=== PATIENT | female | born 1995 | race Caucasian/White ===

== ENCOUNTER 2022-08-13 08:29 | Emergency (ER) | payer OTHER, SELFPAY ==
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
[2022-08-13 08:29] VITALS: BP 149/84; PULSE 92; RESP 17; TEMP 36.4; O2SAT 99
[2022-08-13] MEDS: KETOROLAC (*BKC) 60 MG/2 ML VIAL IM (08:59)
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
[2022-08-13 10:29] VITALS: BP 133/85; PULSE 89; RESP 15; O2SAT 99
== END 2022-08-13 10:30 | disposition home or self-care (01) ==
PROVIDERS: Emergency Provider Emergency Medicine; PCP Internal Medicine
DX: S16.1XXA Strain of muscle, fascia and tendon at neck level, initial encounter (principal); S39.012A Strain of muscle, fascia and tendon of lower back, initial encounter; V49.40XA Driver injured in collision with unspecified motor vehicles in traffic accident, initial encounter
CPT/HCPCS: 72100; 81025; 96372; 99283; J1885

== ENCOUNTER 2024-08-08 04:32 | Emergency (ER) | payer SELFPAY ==
--- NOTE | ~2024-08-08 | CT_ITS ---
EXAMINATION: CT abdomen pelvis w con DATE: 08/08/2024 07:29 INDICATION: Left lower quadrant abdominal pain. TECHNIQUE: Computed tomography (CT) of the abdomen and pelvis was performed with 100 mL Omnipaque 350 intravenous contrast. Automated exposure control and iterative reconstruction technique were employe d. The dose-length product was 392.24 mGy-cm. COMPARISON: None. FINDINGS: The visualized portions of the lung bases demonstrate mild atelectasis in the right. No ple ural effusion. The heart size is normal. No pericardial effusion. The liver, gallbladder, spleen, lindsey creas, adrenal glands, and right kidney are normal. There is a delayed left-sided contrast nephrogram . There is asymmetric edema around left kidney. There is a 3 mm stone in left kidney. There is mild l eft hydronephrosis and hydroureter. There is a 3 mm stone at left ureterovesicular junction. There is a ring-shaped device in the vagina. There are no dilated loops of bowel. The appendix is normal. The re are no pathologically enlarged lymph nodes. There is no free intraperitoneal fluid. There is mild lumbar spondylosis. IMPRESSION: 1. 3 mm stone at left ureterovesicular junction with mild left hydronephrosis and hydroureter. 2. 3 mm nonobstructing left kidney stone. Reviewed, dictated and finalized at location A. IMPRESSION: 1. 3 mm stone at left ureterovesicular junction with mild left hydronephrosis a nd hydroureter. 2. 3 mm nonobstructing left kidney stone.
[2024-08-08 04:33] VITALS: BP 162/84; PULSE 88; RESP 16; TEMP 36.6; O2SAT 100
--- OUTSIDE RECORDS SUMMARY | 2024-08-08 04:34 | XMS_ITS | Encounter Summary ---
Author Organization [facility] Address [facility] [place] [address] Care Team Providers Care Ring Cutter Lathe Operator Name Role Phone Jonna Naylor Primary Care Provider [phone] Jonna Naylor Unavailable [phone] Encounter Details Date Type Department Care Team (Late st Contact Info) Description 04/24/2023 [facility] Message [facility] Family Medicine [address] [address] [place], [facility] Provider Appointment Social History Tobacco Use Types Packs/Day Years Used Date Smoking Tobacco: Never Passive Smoke Exposure: Past Smokeless Tobacco: Never Alcohol Use Standard Drinks/Week Comments No 0 (1 standard drink = 0.6 oz pur e alcohol) AUDIT-C Answer Date Recorded Frequency of Alcohol Consumption Never 12/02/2018 Average Number of Drinks Not on file 019 Frequency of Binge Drinking Not on file 11/15 PHQ-2 Answer Date Recorded Patient Health Questionnaire-2 Score 1 10/08/2022 Comments No Sex and Gender Information Value Date Recorded Sex Assigned at Not on file Legal Sex Female 8:16 PM CDT Gender Identity Female 07/15/2021 2:16 PM CORE CHECKER Sexual Orientation Not on file documented as of this encounter Plan of Treatment Not on file documented as of this encounter Visit Diagnoses Not on filedocumented in this encounter Additional Health Concerns Infection Onset Date Last Indicated Resolved Time COVID-19 Rule Out 07/27/2023 07/27/2023 07/27/2023 1:29 PM CDT Assessment Noted Time PHQ-9 Depression Total Score: 11 023 8:48 AM CDT documented as of this encounter Care Teams Ring Cutter Lathe Operator Relationship Specialty Start Date End Date Jonna Naylor FNP [address] [place] [address] PCP - General Nurse Practitioner Family 03/30/19 Jonna Naylor FNP [address] [place] [address] Referring Physician Nurse Practitioner Family 04/08/19 documented as of this encounter
--- OUTSIDE RECORDS SUMMARY | 2024-08-08 04:34 | XMS_ITS | Encounter Summary ---
Author Organization [facility] Address [address] [place] [address] Care Team Providers Care Therapist Physical Name Role Phone Jonna Naylor Primary Care Provider [phone] Jonna Naylor Unavailable [phone] Encounter Details Date Type Department Care Team (Late st Contact Info) Description 04/02/2019 Fileboard Message Enc [facility] Family & Internal Medicine [facility] [address] [place] [address] Jonna Naylor FNP [address] [place] [address] Medication Questions Social History Tobacco Use Types Packs/Day Years Used Date Smoking Tobacco: Never Smokeless Tobacco: Never Alcohol Use Standard Drinks/Week Comments No 0 (1 standard drink = 0.6 oz pur e alcohol) AUDIT-C Answer Date Recorded Frequency of Alcohol Consumption Never 12/02/2018 Average Number of Drinks Not on file 019 Frequency of Binge Drinking Not on file 11/15 Comments No Sex and Gender Information Value Date Recorded Sex Assigned at Not on file Legal Sex Female 8:16 PM CDT Gender Identity Female 07/15/2021 2:16 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 Sexual Orientation Not on file documented as of this encounter Plan of Treatment Not on file documented as of this encounter Visit Diagnoses Not on filedocumented in this encounter Additional Health Concerns Infection Onset Date Last Indicated Resolved Time COVID-19 Rule Out 07/27/2023 07/27/2023 07/27/2023 1:29 PM CDT documented as of this encounter Care Teams Therapist Physical Relationship Specialty Start Date End Date Jonna Naylor FNP [address] [place] [address] PCP - General Nurse Practitioner Family 03/30/19 Jonna Naylor FNP [address] [place] [address] Referring Physician Nurse Practitioner Family 04/08/19 documented as of this encounter
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
--- OUTSIDE RECORDS SUMMARY | 2024-08-08 04:34 | XMS_ITS | Clinical Summary ---
Author Organization [facility] Address [address] [place] [address] Care Team Providers Care Senior Tableau Developer Name Role Phone Paul Baltazar MD Primary Care Provider [phone] Source Comments [facility],non-owned Affiliates and Associated Physician Practices is amultiple site organization consisting of ambulatory clinics and hospital sitesin [place], [place], [place] and [place]. This disclosure is being madepursuant to the Care Everywhere program and may not contain all information available regarding this patient. Last updated 18.[facility] Allergies Active Allergy Reactions Criticality Noted Date Comments Other Other 11/11/2012 She passed out taking her 2nd dose of guardisil Medications * Be aware that medications may not be up to date on this document. Alwaysverify current medications with the patient. Medication Sig Dispensed Refills Start Date End Date Status amphetamine-dextroamp hetamine (Adderall) 10 MG tablet TAKE 1 TABLET BY MOUTH IN THE EARLY AFTERNOON NEEDED 07/09/2023 Active amphetamine-dextroamp hetamine (Adderall) 20 MG tablet TAKE 1 TABLET BY MOUTH EARLY AFTERNOON NEEDED 07/27/2023 Active amphetamine-dextroamp hetamine (Adderall) 10 MG tablet TAKE 1 TABLET BY MOUTH IN THE EARLY AFTERNOON NEEDED Active amphetamine-dextroamp hetamine (Adderall) 30 MG tablet 07/09/2023 Active ARIPiprazole (Abilify) 2 MG tablet 07/27/2023 Act jesus escitalopram (Lexapro) 20 MG tablet 06/30/2023 Active Active Problems Problem Noted Date Diagnosed Date Attention deficit hyperactiv ity disorder (ADHD), combined type 06/27/2021 08/10/2023 Polycystic ovary syndrome 04/29/20212023 Anxiety and depression 07/19/2020 Vitamin D deficiency 07/19/2020 08/10/2023 Gastroesophageal reflux disease 10/22/2016 08/10/2023 Irregular periods 09/08/2014 08/10/2023 Overview (08/10/2023): Irregular menstrual cycle;Practice ID: [id number] Atypical squamous cells of u ndetermined significance (ASCUS) on Papanicolaou smear of cervix 04/26/2014 08/10/2023 Overview (08/10/2023): Pap Abnormal Endocerv Endometrial Octavio;Practice ID: [id number] Pap Abnormal ASCUS;Practice ID: [id number] Panic disorder without agoraphobia 05/13/2013 08/10/2023 ACL (anterior cruciate ligament) rupture 013 Hip pain, bilateral 05/27/2011 Family History Medical History Relation Name Comments Depression Brother Hypertension Brother Thyroid Disease Brother Depression Father Hypertension Father CVA Maternal Aunt COPD - Chronic Obstructive Pulmonary Disease Maternal Grandfather Heart Failure Maternal Grandfather Cancer - Lung Maternal Grandmother Anesthesia Reaction Mother Diabetes; unknown type Mother Hyperlipidemia Mother Hypertension Mother Thyroid Disease Mother Hyperlipidemia Paternal Grandfather Hypertension Paternal Grandfather Depression Paternal Grandmother Relation Name Status Comments Brother Father Alive Maternal Aunt Alive Maternal Grandfather Maternal Grandmother Mother Alive Paternal Grandfather Paternal Grandmother Alive Social History Tobacco Use Types Packs/Day Years Used Date Smoking Tobacco: Never Passive Smoke Exposure: Past Smokeless Tobacco: Never Tobacco Cessation:Counseling Given: Not Answered Alcohol Use Standard Drinks/Week Comments No 0 (1 standard drink = 0.6 oz pur e alcohol) Sex and Gender Information Value Date Recorded Sex Assigned at Female 12/07/2020 10:39 AM CDT Gender Identity Female 12/07/2020 10:39 AM CDT Sexual Orientation Not on file Last Filed Vital Signs Vital Sign Reading Time Taken Comments Blood Pressure 128/74 08/26/2023 8:20 AM CDT Pulse 96 12/07/2020 7:22 PM CDT Temperature 37.1 C (98.7 F) 12/07/2020 7:22 PM CDT Respiratory Rate 14 12/07/2020 7:22 PM CDT Oxygen Saturation 96% 12/07/2020 7:22 PM CDT Inhaled Oxygen Concentration - - Weight 77.1 kg (170 lb) 08/26/2023 8:20 AM CDT Height 162.6 cm (5' 4 ) 08/26/2023 8:20 AM CDT Body Mass Index 29.18 08/26/2023 8:20 AM CDT Plan of Treatment Health Maintenance Due Date Last Done Comments PAP SMEAR 1994 HIV SCREENING 2009 HEPATITIS C SCREENING 02/07/2012 DTAP/TDAP/TD VACCINES (1 - Tdap) 2013 HEPATITIS B VACCINE (1 of 3 - 19+ 3-dose series) 2013 COVID-19 VACCINE (2 - 2023-2 5 season) 2024 07/23/2020 INFLUENZA VACCINE (#1) 2024 DEPRESSION SCREENING 05/18/2024 ZOSTER VACCINE (1 of 2) 02/12/2044 HIB VACCINE Aged Out No longer eligi ble based on patient's age to complete this topic HPV VACCINE Aged Out No longer eligi ble based on patient's age to complete this topic MENINGOCOCCAL (Group B) VACC INE SHARED DECISION-MAKING Aged Out No longer eligibl e based on patient's age to complete this topic MENINGOCOCCAL GROUPS A/C/Y/W VACCINE Aged Out No longer eligible b ased on patient's age to complete this topic PNEUMOCOCCAL VACCINE Aged Out No long er eligible based on patient's age to complete this topic Care Teams Senior Tableau Developer Relationship Specialty Start Date End Date Paul Baltazar MD PCP - General 03/11/13
--- OUTSIDE RECORDS SUMMARY | 2024-08-08 04:35 | XMS_ITS | Encounter Summary ---
Author Organization [facility] Address [facility] [place] [address] Care Team Providers Care Sample Stitcher Name Role Phone Jonna Naylor Primary Care Provider [phone] Jonna Naylor Unavailable [phone] Encounter Details Date Type Department Care Team (Late st Contact Info) Description 08/20/2022 [facility] Patient Accounts [address] [place] [address] [facility] Provider Monthly Credit Card Payment Social History Tobacco Use Types Packs/Day Years Used Date Smoking Tobacco: Never Smokeless Tobacco: Never Alcohol Use Standard Drinks/Week Comments No 0 (1 standard drink = 0.6 oz pur e alcohol) AUDIT-C Answer Date Recorded Frequency of Alcohol Consumption Never 12/02/2018 Average Number of Drinks Not on file 019 Frequency of Binge Drinking Not on file 11/15 PHQ-2 Answer Date Recorded PHQ-2 Score - If the patient scores above 3, please move on to questions 3-9 5 06/24/2021 Comments No Sex and Gender Information Value Date Recorded Sex Assigned at Not on file Legal Sex Female 8:16 PM CDT Gender Identity Female 07/15/2021 2:16 PM DIRECTOR OF PRODUCT DESIGN Sexual Orientation Not on file documented as of this encounter Plan of Treatment Not on file documented as of this encounter Visit Diagnoses Not on filedocumented in this encounter Additional Health Concerns Infection Onset Date Last Indicated Resolved Time COVID-19 Rule Out 07/27/2023 07/27/2023 07/27/2023 1:29 PM CDT Assessment Noted Time PHQ-9 Depression Total Score: 20 022 4:32 PM DIRECTOR OF PRODUCT DESIGN documented as of this encounter Care Teams Sample Stitcher Relationship Specialty Start Date End Date Jonna Naylor FNP [address] [place] [address] PCP - General Nurse Practitioner Family 03/30/19 Jonna Naylor FNP [address] [place] [address] Referring Physician Nurse Practitioner Family 04/08/19 documented as of this encounter
--- OUTSIDE RECORDS SUMMARY | 2024-08-08 04:35 | XMS_ITS | Data Portability ---
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 if PCOS, could try metformin for weight loss. Not available 04/24/2021 12:32:59 07/16/2021 07/16/2021 healthy female exam patient declines std testing pap done, discussed guidelines contraception- nuva ring refilled. may have to DC if BP remains uncontrolled. will FU with PCP re BP/stimulant. pt desires Dr Yeung weight loss consult- will schedule FU 1 year or prn [email or web address] Not available 07/19/2021 11:26:04 07/29/2023 07/29/2023 Annual gynecological exam performed. Patient will come back in a year unless there are new symptoms. [email or web address] Not available 07/29/2023 09:05:46 Plan of Treatment Reminders Order Date Submit Date Provider Last Modified By Organization Details Last Modified Time Details Appointments None recorded . Lab pregnanc y test, urine 2022 023 wiliam [facility], [address], [address], [place], [address], 10:55:33 dhea-sul fate, serum 2020 021 [facility] (Lab), [address] , [place], [address], 1 17:23:24 HbA1c (hemoglo bin A1c), blood 2020 021 [facility] (Lab), [address], [place], [address], 1 17:23:25 prolacti n, serum 2020 021 [facility] (Lab), [address], [place], [address], 1 17:23:24 testoste madhu free/bernie tosteron e total, ratio, serum 2020 [facility] (Lab), [address], [place], [address], 1 17:23:25 TSH, serum or plasma 2020 [facility] (Lab), [address] , [place], [address], 1 17:23:24 pregnanc y test, urine 2020 [facility], [address], [address], [place], [address], 1 16:46:39 Referral urogynec ologist referral 2023 024 sonja Brown MD - [facility], [address], [place] [address], [place], [address], 4 15:12:28 Procedures None recorded . Surgeries None recorded . Imaging None recorded . Medication Orders Diflucan 200 mg tablet 2023 024 [facility]74019, [address], [place], [place], [id number], 4 12:46:59 nystatin -triamci nolone 100,000 unit/gra m-0.1 % topical ointment 2023 024 [place] [facility]35005, [address], [place], [place], [id number], 4 12:47:00 NuvaRing 0.12 mg-0.015 mg/24 hr vaginal 2023 024 [place] [facility]07506, [address], [place], [place], [id number], 4 12:31:36 metronid azole 500 mg tablet 2022 023 [facility], [address], [place], [place], [id number], 4 09:06:53 fluconaz ole 150 mg tablet 2022 023 [place] [address] [facility], [address], [place], [place], [id number], 4 09:06:42 nystatin -triamci nolone 100,000 unit/gra m-0.1 % topical ointment 2022 023 [facility]55, [address], [place], [place], [id number], 4 09:06:58 etonoges trel 0.12 mg-ethin yl estradio l 0.015 mg/24 hr vaginal ring 2022 023 [place] [facility] #39978, [address], [place], [place], [id number], 3 10:56:56 Diflucan 150 mg tablet 2021 022 [email or web address] [facility] #92098, [address], [place], [place], [id number], 4 09:06:42 triamcin olone acetonid e 0.1 % topical ointment 2021 [facility] #61150, [address], [place], [place], [id number], 3 09:39:10 [address] granules in packet 2021 [facility] #84713, [address], [place], [place], [id number], 3 09:39:07 NuvaRing 0.12 mg-0.015 mg/24 hr vaginal 2021 022 [facility] #86133, [address], [place], [place], [id number], 3 09:38:44 Provera 10 mg tablet 2020 021 [facility] #63776, [address], [place], [place], [id number], 2 14:36:53 NuvaRing 0.12 mg-0.015 mg/24 hr vaginal 2020 021 [facility] #58533, [address], [id number], 3 09:38:44 Patient TargetsNo targets recorded. Patient InstructionsNo instructions recorded. Reason for Referral Urogynecologist Referral for Vulvar vestibulitis Referring Physician: Viola Borges, MEDIA MARKETING COORDINATOR, Encounter Date: 07/29/2023 Results Created Date Observation Date Name Description Value Unit Range Abnormal Flag Note LastModifiedBy Organization Detail LastModifiedTime 04/23/20 21 04/23/2021 TSH, REFLE X FREE T4 TSH 5.16 uIU/m L 0.30-5 .33 Not Available [facility] (Lab) [address], [place], [address], 04/27/2021 17:23:24 04/23/20 21 04/23/2021 PROLA CTIN prolactin, total 22.40 NG/mL 4.79-2 3.30 This assay was perfo rmed using [employer] ratio n reage nts and test kits. Value s obtai shannon with other assay metho ds or kits canno t be used inter villarreal eably . Not Available [facility] (Lab) [address], [place], [address], 04/27/2021 17:23:24 04/23/20 21 04/23/2021 DHEA SULFA TE DHEA-sulfate 169 ug/dL Femal e Range s Age(y ) Range (ug/d L) 10-15 34-28 0 15-20 65-36 8 20-25 148-4 07 25-35 99-34 0 35-45 61-33 7 45-55 35-25 6 55-65 19-20 5 65-75 9-246 > 75 12-15 4 Not Available [facility] (Lab) [address] , [place], [address], 04/27/2021 17:23:24 04/23/20 21 04/23/2021 HEMOG LOBIN A1C hemoglobin A1C 5.3 % 0-5.6 The Ameri can Diabe bernie Assoc iatio n recom mends that a prima ry goal of thera py shoul d be a HBA1C of < 7% and that physi cians shoul d reeva luate the treat ment regim en in patie nts with HBA1C value s consi stent ly > 8%. <5.7% Muriel l 5.7 - 6.4% Incre ased risk for diabe bernie >=6.5 % Diagn ostic of diabe bernie <7.0% Goal of thera py >8.0% Louie arrington Not Available [facility] (Lab) [address] [place], [address], 04/27/2021 17:23:25 04/23/20 21 04/23/2021 TESTO STERO NE, FREE( DIALY SIS) AND TOTAL (LC/M S/MS) testosterone , total 55 NG/dL 2-45 high For addit ional infor cinthia motta e refer to http: //[facility]chell mendoza.que stdia gnost ics.c om/fa q/Tot alTkrish Salgado [facility] (This link is being provi ded for infor matadis nal/ educa whitney l purpo ses only. ) This test was devel oped and its khushi tical perfo rmanc e inder cteri stics have been deter mined by [facility] [employer] [facility]. It has not been clear ed or appro will by the FDA. This assay has been valid ated pursu ant to the CLIA regul ation s and is used for clini vidhi purpo ses. Not Available [facility] (Lab) [address], [place], [address], 04/27/2021 17:23:25 04/23/20 21 04/23/2021 TESTO STERO NE, FREE( DIALY SIS) AND TOTAL (LC/M S/MS) testosterone , free 10.6 pg/mL 0.1-6. 4 high This test was devel oped and its khushi tical perfo rmanc e inder cteri stics have been deter mined by [facility]. It has not been clear ed or appro will by the FDA. This assay has been valid ated pursu ant to the CLIA regul ation s and is used for clini vidhi purpo ses. Perfo rming Organ izati on Infor matio n: Site ID: [id number] Name: [facility] Yessenia campos Addre ss: [id number] [place] [address] Direc tor: Danny garcia M.D. Not Available [facility] (Lab) [address], [place], [address], 04/27/2021 17:23:25 04/23/20 21 04/23/2021 pregn marcin test, urine HCG negati ve Not Available [facility] [address], [place], [address], 04/23/2021 16:46:29 07/17/19 22 07/16/2021 IMAGE GUIDE D PAP, REFLE X HPV IF ASCUS ONLY image guided Pap, reflex HPV ASCUS only SEE RESULT S BELOW CASE REPOR T: Cytol ogy Gynec ologi vidhi Repor t Case: [id number] Autho mathieu hewitt Provi aracelis: Minnie Méndez MD Colle cted: 07/16 1639 Order ing Locat ion: [place] [facility] Recei will: 07/17 0333 First Scree n: Cyndi Ceballos , CT Speci men: Scree julianne Pap - Image d, Cervi x STATE MENT OF ADEQU ACY: Satis facto ry for evalu ation Trans forma tion zone compo nent prese nt FINAL DIAGN OSIS: Negat jesus for Intra epith elial Lesio n or Maciel zarate (NIL) . Elect davis griffith josué d by Cyndi Ceballos CT on 022 at 12:08 PM ----- ----- ----- ----- ----- ----- ----- ----- ----- ----- ----- ----- ----- ----- ----- ----- ----- ---- COMME NT: Note: This speci men was revie wed by a Cytot echno logis t and/o r Patho logis t (as indic ated in this repor t) after evalu ation using the Thinp rep Imagi ng Syste m. CLINI VIDHI INFOR MATIO N: Menst rual Statu s: LMP (if appli cable ): Clini vidhi Histo ry/Pr eviou s Pap: Type of Neopl bear (if appli cable ): Signi fican t Clini vidhi Findi ngs: Other Histo ry: Hormo yehuda (if appli cable ): PAP EDUCA WHITNEY L NOTE: The Pap Test is a scree julianne test with an inher ent false negat jesus rate. Liqui d-bas ed sampl ing may decre ase, but will not elimi trinidad, false negat jesus resul ts. A negat jesus resul t does not precl ude the prese nce and/o r devel opmen t of disea se, since the prese nce of abnor mal cells in the sampl e depen ds on the locat ion of the lesio n and sampl ing techn ique. Cece nued regul ar scree julianne is the best metho d of cance r preve ntion . If repor tyler cytol ogic findi ng do not corre late with physi vidhi and/o r histo rical findi ngs, furth er inves tigat ion is recom tuyet d, as clini chyna warra nted. Not Available [facility] (Lab) [address] , [place], [address], 07/22/2021 13:11:37 01/09/20 23 01/08/2023 pregn marcin test, urine HCG negati ve Not Available [facility] [address], [place], [address], 01/08/2023 10:55:26 07/29/19 24 07/29/2023 MOBIL UNCUS MULIE RIS/C URTIS KATIE, RT-PC R, ONE SWAB mobiluncus mulieris and mobiluncus curtisii by RT-PCR Negati ve Swab- 1 Vag Cerv Not Available [facility] (Lab) [address] , [place], [address], 08/05/2023 15:04:00 07/29/19 24 07/29/2023 BACTE RIAL VAGIN OSIS PANEL RT-PC R, ONESW AB gardnerella vaginalis PCR Negati ve Swab- 1 Vag Cerv Not Available [facility] (Lab) [address] [place], [address], 08/05/2023 15:04:01 07/29/19 24 07/29/2023 BACTE RIAL VAGIN OSIS PANEL RT-PC R, ONESW AB atopobium vaginae PCR Negati ve Swab- 1 Vag Cerv Not Available [facility] (Lab) [address] [place], [address], 08/05/2023 15:04:01 07/29/19 24 07/29/2023 BACTE RIAL VAGIN OSIS PANEL RT-PC R, ONESW AB bacterial vaginosis associated bacteria 2 (bvab2) Negati ve Swab- 1 Vag Cerv Not Available [facility] (Lab) [address] [place], [address], 08/05/2023 15:04:01 07/29/19 24 07/29/2023 BACTE RIAL VAGIN OSIS PANEL RT-PC R, ONESW AB megasphaera species (type 1 and type 2) PCR Negati ve (Type1 ,Type2 ) Swab- 1 Vag Cerv Type1 :Nega tive Type2 :Nega tive. Not Available [facility] (Lab) [address] [place], [address], 08/05/2023 15:04:01 07/29/19 24 07/29/2023 BACTE RIAL VAGIN OSIS PANEL RT-PC R, ONESW AB lactobacillu s (bvpanel) PCR See Commen t Swab- 1 Vag Cerv L.cri spatu s: Posit jesus L.lakeisha senii : Negat jesus L.gas seri : Negat jesus L.ine rs : Posit jesus. Not Available [facility] (Lab) [address] [place], [address], 08/05/2023 15:04:01 07/29/19 24 07/29/2023 UROGE NITAL MYCOP LASMA /UREA PLASM A PANEL RT-PC R, ONESW AB mycoplasma genitalium by RT-PCR Negati ve Swab- 1 Vag Cerv Not Available [facility] (Lab) [address], [place], [address], 08/05/2023 15:04:02 07/29/19 24 07/29/2023 UROGE NITAL MYCOP LASMA /UREA PLASM A PANEL RT-PC R, ONESW AB mycoplasma hominis by RT-PCR Negati ve Swab- 1 Vag Cerv Not Available [facility] (Lab) [address] [place], [address], 08/05/2023 15:04:02 07/29/19 24 07/29/2023 UROGE NITAL MYCOP LASMA /UREA PLASM A PANEL RT-PC R, ONESW AB ureaplasma urealyticum by RT-PCR Negati ve Swab- 1 Vag Cerv Not Available [facility] (Lab) [address] [place], [address], 08/05/2023 15:04:02 07/29/19 24 07/29/2023 ILDEFONSO DA VAGIN ITIS PANEL RT-PC R, ONESW AB usama albicans PCR Positi ve abnormal Swab- 1 Vag Cerv Not Available [facility] (Lab) [address] [place], [address], 08/05/2023 15:04:02 07/29/19 24 07/29/2023 ILDEFONSO DA VAGIN ITIS PANEL RT-PC R, ONESW AB usama tropicalis PCR Negati ve Swab- 1 Vag Cerv Not Available [facility] (Lab) [address] [place], [address], 08/05/2023 15:04:02 07/29/19 24 07/29/2023 ILDEFONSO DA VAGIN ITIS PANEL RT-PC R, ONESW AB usama parapsilosis PCR Negati ve Swab- 1 Vag Cerv Not Available [facility] (Lab) [address] [place], [address], 08/05/2023 15:04:02 07/29/19 24 07/29/2023 ILDEFONSO DA VAGIN ITIS PANEL RT-PC R, ONESW AB usama glabrata PCR Negati ve Swab- 1 Vag Cerv Not Available [facility] (Lab) [address] [facility], [place], [address], 08/05/2023 15:04:02 07/29/19 24 07/29/2023 ILDEFONSO DA VAGIN ITIS PANEL RT-PC R, ONESW AB usama krusei by RT-PCR Negati ve Swab- 1 Vag Cerv Not Available [facility] (Lab) [address], [place], [address], 08/05/2023 15:04:02 07/29/19 24 07/29/2023 ILDEFONSO DA RADAMES I BY RT-PC R usama krusei by RT-PCR CANCEL LED Dupli mainor Not Available [facility] ([facility]) [address] [place], [address], 08/05/2023 15:04:03 Result Notes None recorded. Problems Name Problem SNOMED Code Status Onset Date Resolution Date Notes Provider Name and Address Organization Details Recorded Time Breast lump 80784742 Completed 201509/03/2021 Unspecifi ed lump in breast;Pr actice ID: 0001 Carlee Gomez [facility] 2 22:18:43 Disorder of intraute rine contrace ptive device Completed 201509/12/2020 [facility] compl of intrauter ine contracep tive device, init encntr;Pr actice ID: 0001 Carlee Gomez [facility] 16:21:48 Finding of regulari ty of menstrua l cycle Completed 201509/12/2020 Irregular menstruat ion, unspecifi ed;Practi ce ID: 0001 [facility] 16:21:17 Pelvic and perineal pain 214190370 Completed 201509/12/2020 Pelvic and perineal pain;Prac irwin ID: [address] [facility] 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 16:21:55 Acute vaginiti s [id number] Completed 201609/12/2020 Acute vaginitis ;Practice ID: [address] [facility] 16:20:57 Vaginola bial hernia Completed 201609/12/2020 Other specified noninflam matory disorders of vagina;Pr actice ID: [address] [facility] 16:22:15 Syphilis test finding [id number] Completed 201609/12/2020 Encntr screen for infection s w sexl mode of transmiss ;Practice ID: [address] [facility] 16:22:08 Infectio n screenin g Completed 201609/12/2020 Encounter for screening for oth infec/par astc diseases; Practice ID: [address] [facility] 16:21:22 Emotiona l state finding Completed 201709/12/2020 Other specified anxiety disorders ;Practice ID: [address] [facility] 16:21:[address] Concept Completed 201709/12/2020 Encntr for general adult medical exam w/o abnormal findings; Practice ID: [address] [facility] 16:21:43 Removal of intraute rine device Completed 201809/12/2020 Encounter for removal of intrauter ine contracep tive device;Pr actice ID: 0001 Carlee Gomez [facility] 16:21:[address] Concept Completed 201909/12/2020 Encounter for other contracep tive managemen t;Practic e ID: 0001 Carlee Gomez [facility] 16:22:00 Speciali zed medical examinat ion Completed 201209/12/2020 Gynecolog ical Examinati on;Record ed Elsewhere : No Locati on: [facility] So urce: EHR Chron ic: N Practic e ID: 0001 Bill able Time: 01:30:00 PM Carlee Gomez [facility] 16:22:03 Amenorrh ea [id number] Completed 201209/12/2020 Absence of menstruat ion;Recor ded Elsewhere : No Locati on: [facility] So urce: EHR Chron ic: N Practic e ID: 0001 Bill able Time: 03:15:00 PM Carlee Gomez [facility] 16:21:02 Contrace ption care manageme nt Completed 201009/12/2020 Other specified contracep tive managemen t;Practic e ID: 0001 Carlee Gomez [facility] 16:21:51 Screenin g for malignan t neoplasm of cervix Completed 201009/12/2020 Pap Smear;Pra ctice ID: 0001 Carlee Gomez [facility] 16:21:41 Pregnanc y test negative [id number] Completed 201209/12/2020 Negative Test;Prac irwin ID: 0001 Carlee Gomez [facility] 16:21:35 Vaginiti s and vulvovag initis Completed 201309/12/2020 Vaginitis and vulvovagi nitis, unspecifi ed;Practi ce ID: 0001 Carlee Gomez [facility] 16:22:13 Speciali zed medical examinat ion Completed 201309/12/2020 Other specified chlamydia l diseases; Practice ID: 0001 Carlee Gomez [facility] 16:22:05 Venereal disease screenin g Completed 201309/12/2020 Screening examinati on for venereal disease;Vicky hamptontice ID: 0001 Carlee Gomez [facility] 16:22:18 Insertio n of intraute rine contrace ptive device Completed 201309/12/2020 INSERTION OF IUD;Pract ice ID: 0001 Carlee Gomez [facility] 16:21:26 Atypical squamous cells of undeterm ined signific ance on cervical Papanico laou smear [id number] Completed 201309/03/2021 Pap Abnormal ASCUS;Pra ctice ID: 0001 Carlee Gomez [facility] 2 22:18:43 Urinary tract infectio us disease 37905075 Completed 201409/12/2020 Urinary tract infection , site not specified ;Practice ID: 0001 Carlee Gomez [facility] 16:22:10 Abdomina l pain 13400351 Completed 201409/12/2020 Abdominal pain, unspecifi ed site;Prac irwin ID: 0001 Carlee Gomez [facility] 16:20:55 Irregula r periods [id number] Completed 201409/12/2020 Irregular menstrual cycle;Pra ctice ID: 0001 Carlee Gomez [facility] 1 16:21:29 Atypical glandula r cells on cervical Papanico laou smear [id number] Completed 201409/12/2020 Pap Abnormal Endocerv Endometri al Octavio;Prac irwin ID: 0001 Carlee Gomez [facility] 1 16:21:04 Adult health examinat ion Completed 201309/12/2020 ROUTINE MEDICAL EXAM;Rico rded Elsewhere : No Locati on: [facility] So urce: EHR Chron ic: N Practic e ID: 0001 Bill able Time: 03:30:00 PM Carlee Gomez [facility] 16:21:00 Family planning surveill ance Completed 201309/12/2020 Contracep tive method surveilla nce;Recor ded Elsewhere : No Locati on: [facility] So urce: EHR Chron ic: N Practic e ID: 0001 Bill able Time: 03:30:00 PM Carlee Gomez [facility] 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 2 22:18:43 Problem Notes None recorded. Procedures Surgical History Date Name Laterality Status Provider Name and Address Organization Details Recorded Time 07/17/19 22 Date of Last Pap Smear completed Carlee Edwards [facility] 07/29/2023 09:07:17 04/27/20 14 Colposcopy completed Carlee [facility] 09/12/2020 16:58:30 tonsilectomy/adeno ids completed Carlee [facility] 09/04/2021 10:39:18 reconstruction of anterior cruciate ligament of knee joint completed Bridgette John [facility] 12/22/2019 11:45:18 Removal of ovarian cyst(s) completed Bridgette John [facility] 12/22/2019 11:45:24 Tonsillectomy completed Bridgette John [facility] 12/22/2019 11:45:29 Imaging Results None recorded. Procedure Notes None recorded. Medical Equipment None Reported. Allergies Allergen ID Allergen Name Allergen Category Reaction Reaction Severity Criticality Documentation Date Start Date Code Code System Note Provider Name and Address Organization Details Recorded Time 1585 L1 protein, human papilloma virus type 16 vaccine Not available Not available Not available Not available 12/22/2019 44752 4 RxNorm [facility] 11:43:42 1586 ascorbic acid / cuprous oxide / lutein / vitamin E / zinc oxide medicatio n Not available Not available Not available 12/22/2019 61813 [address] [facility] 0 11:43:53 Medications Name Sig Start Date Stop Date Status Note LastModified by Organization Details LastModified Time Prometriu m 200 mg capsule take 1 capsule (200MG) by oral route every day for 30 days 12/23 completed Prescrib ed Donher e: No [facility] odify By: jason tz Encou nter DateTime : 11/25/19 13 03:15:00 PM Not Available Not Available Not Available cyclobenz aprine 10 mg tablet TAKE 1 TABLET BY MOUTH THREE TIMES DAILY NEEDED FOR MUSCLE SPASM 07/28 completed Not Available Not Available Not Available amoxicill in 500 mg capsule TAKE ONE CAPSULE BY MOUTH THREE TIMES DAILY 01/08 completed Not Available Not Available Not Available medroxypr ogesteron e 10 mg tablet TAKE 1 TABLET BY MOUTH EVERY DAY FOR 7 DAYS active Not Available Not Available No t Available cefuroxim e axetil 250 mg tablet 04/23 completed Not Available Not Available Not Available naproxen 375 mg tablet TAKE 1 TABLET BY MOUTH TWICE DAILY 01/08 completed Not Available Not Available Not Available azithromy deana 250 mg tablet TAKE 2 TABLETS BY MOUTH FOR 1 DAY THEN TAKE 1 TABLET BY MOUTH DAILY FOR 4 DAYS 04/23 completed Not Available Not Available Not Available Necon 35 (28) 1 mg-35 mcg tablet take 1 tablet by oral route every day 09/23 completed Prescrib ed Elsewher e: No Locat ion: [facility] odify By: lbillhar tz Encou nter DateTime : 02/10/20 01:30:00 PM Not Available Not Available Not Available Lidocaine Viscous 2 % mucosal solution 07/28 completed Not Available Not Available Not Available fluconazo le 150 mg tablet TAKE 1 TABLET BY MOUTH NOW. REPEAT IN 7 DAYS 07/28 completed Not Available Not Available Not Available hydrocodo ne 5 mg-acetam inophen 325 mg tablet TAKE 1 TABLET BY MOUTH EVERY 4 TO 6 HOURS NEEDED 01/08 completed Not Available Not Available Not Available fluconazo le 200 mg tablet Take 1 tablet PO every other day x 3 doses. active Not Available Not Available No t Available dextroamp hetamine- amphetami ne 10 mg tablet TAKE 1 TABLET BY MOUTH IN THE EARLY AFTERNOO N NEEDED active Not Available Not Available No t Available metronida zole 500 mg tablet TAKE 1 TABLET BY MOUTH EVERY 12 HOURS FOR 7 DAYS 07/28 completed Not Available Not Available Not Available acetamino phen 300 mg-codein e 30 mg tablet TAKE 1 TO 2 TABLETS BY MOUTH EVERY 6 HOURS NEEDED FOR PAIN 04/23 completed Not Available Not Available Not Available omeprazol e 40 mg capsule,d elayed release TAKE 1 CAPSULE BY MOUTH TWICE DAILY BEFORE MEALS 01/08 completed Not Available Not Available Not Available dextroamp hetamine- amphetami ne 30 mg tablet TAKE 1 TABLET BY MOUTH EVERY DAY active Not Available Not Available No t Available nystatin- triamcino lone 100,000 unit/gram -0.1 % topical ointment APPLY TOPICALL Y TO THE AFFECTED AREA TWICE DAILY FOR 7 DAYS NEEDED active Not Available Not Available No t Available Metrogel Vaginal 0.75 % (37.5 mg/5 gram) insert 1 applicat orful by vaginal route every day at bedtime for 5 nights 06/02 completed Prescrib ed Elsewher e: No Locat ion: [facility] odify By: tonya gomezunter DateTime : 09/08/19 18 10:25:08 AM Not Available Not Available Not Available omeprazol e 10 mg capsule,d elayed release take 2 capsule by oral route every day before a meal 04/23 completed Prescrib ed Elsewher e: Yes Loca tion: [facility] odify By: tonya anders DateTime : 02/23/20 19 02:00:00 PM Not Available Not Available Not Available triamcino lone acetonide 0.1 % topical ointment APPLY THIN LAYER TOPICALL Y TO THE AFFECTED AREA TWICE DAILY FOR 7 DAYS NEEDED 01/08 completed Not Available Not Available Not Available Focalin 10 mg tablet 01/08 completed Not Available Not Available Not Available dextroamp hetamine- amphetami ne 20 mg tablet TAKE 1 TABLET BY MOUTH EARLY AFTERNOO N NEEDED active Not Available Not Available No t Available dextroamp hetamine- amphetami ne 15 mg tablet 01/08 completed Not Available Not Available Not Available fluoxetin e 10 mg capsule 04/23 completed Not Available Not Available Not Available monteluka st 10 mg tablet 04/23 completed Not Available Not Available Not Available ibuprofen 600 mg tablet 04/23 completed Not Available Not Available Not Available Vitamin D2 1,250 mcg (50,000 unit) capsule take 1 capsule by oral route every week 02/22 completed Prescrib ed Elsewher e: No Locat ion: [facility] odify By: tonya anders DateTime : 09/16/19 18 11:32:05 AM Not Available Not Available Not Available Terazol 7 0.4 % vaginal cream insert 1 applicat orful by vaginal route every day for 7 days at bedtime 11/13 completed Prescrib ed Elsewher e: No Locat ion: [facility] odify By: jason Valdez ntstalin DateTime : 11/08/19 14 01:00:00 PM Not Available Not Available Not Available amoxicill in 875 mg-potass ium clavulana te 125 mg tablet TAKE 1 TABLET BY MOUTH TWICE DAILY UNTIL ALL TAKEN 04/23 completed Not Available Not Available Not Available buspirone 15 mg tablet take 1 tablet by oral route 2 times every day 02/22 completed Prescrib barbara Gomez e: No Locat ion: [facility] odify By: tonya anders DateTime : 10/16/19 18 09:15:00 AM Not Available Not Available Not Available NuvaRing 0.12 mg-0.015 mg/24 hr vaginal insert 1 vaginal ring by vaginal route every month leave in place for 3 weeks, remove for 1 week active Not Available Not Available No t Available escitalop argent[place] 20 mg tablet active Not Available Not Available Not Available bupropion HCl XL 300 mg 24 hr tablet, extended release TAKE 1 TABLET BY MOUTH EVERY DAY 04/23 completed Not Available Not Available Not Available Wellbutri n XL 150 mg 24 hr tablet, extended release Take 1 tablet every day by oral route for 7 days. 09/12 completed Not Available Not Available Not Available dexmethyl phenidate ER 10 mg capsule,e xtended release biphasic5 0-50 09/04 completed Not Available Not Available Not Available dexmethyl phenidate ER 20 mg capsule,e xtended release biphasic5 0-50 09/04 completed Not Available Not Available Not Available chlorhexi dine gluconate 0.12 % mouthwash SWISH AND SPIT 10 TO 15 ML BY MOUTH TWICE DAILY 04/23 completed Not Available Not Available Not Available magnesium 04/23 completed Not Available Not Available Not Available calcium 04/23 completed Not Available Not Available Not Available omeprazol e 09/12 completed Not Available Not Available Not Available Vitamin D 09/12 completed Not Available Not Available Not Available Singulair 09/12 completed Not Available Not Available Not Available NuvaRing 09/12 completed Not Available Not Available Not Available Lexapro 09/12 completed Not Available Not Available Not Available aripipraz ole 2 mg tablet active Not Available Not Available Not Available ProAir HFA 12/21 completed Not Available Not Available Not Available dexmethyl phenidate ER 30 mg capsule,e xtended release biphasic5 0-50 TAKE 1 CAPSULE BY MOUTH DAILY 01/08 completed Not Available Not Available Not Available Probiotic 10 billion cell capsule 10/30 completed Prescrib ed Elsewher e: Yes Loca tion: [facility] odify By: emma omalley DateTime : 09/09/19 08:30:00 AM Not Available Not Available Not Available ProAir RespiClic k 90 mcg/actua tion breath activated inhale 2 puff by inhalati on route every 4 - 6 hours as needed 04/23 completed Prescrib ed Elsewher e: Yes Loca tion: [facility] odify By: tonya anders DateTime : 02/23/20 02:00:00 PM Not Available Not Available Not Available Acid Shoe Reconditioner (omeprazo le) 09/04 completed Not Available Not Available Not Available Solosec [address] granules in packet Take 1 packet every day by oral route with meals for 1 day. 01/08 completed Not Available Not Available Not Available Vitals Date Recorded Body weight Body mass index (BMI) Body height Systolic blood pressure Diastolic blood pressure Provider Name and Address Organization Details Last Updated DateTime 04/23/2021 30608.25 g 37.1 kg/m2 157.48 cm 133 mm[Hg] 66 mm[Hg] [facility] 1 16:41:15 Date Recorded Body height Body mass index (BMI) Body weight Systolic blood pressure Diastolic blood pressure Systolic blood pressure Diastolic blood pressure Provider Name and Address Organization Details Last Updated DateTime 2 157.48 cm 36.4 kg/m2 42600.8 8 g 150 mm[Hg] 103 mm[Hg] 140 mm[Hg] 99 mm[Hg] [facility] 2 14:36:47 Date Recorded Body height Body mass index (BMI) Body weight Systolic blood pressure Diastolic blood pressure Provider Name and Address Organization Details Last Updated DateTime 09/04/2021 157.48 cm 35.6 kg/m2 79240.08 g 126 mm[Hg] 76 mm[Hg] Carlee Gomez [facility] 2 10:38:43 Date Recorded Body height Body mass index (BMI) Body weight Systolic blood pressure Diastolic blood pressure Provider Name and Address Organization Details Last Updated DateTime 01/08/2023 157.48 cm 35.6 kg/m2 26829.08 g 123 mm[Hg] 82 mm[Hg] Saritha Trevino [facility] 09:38:07 Date Recorded Body height Body mass index (BMI) Body weight Provider Name and Address Organization Details Last Updated DateTime 07/29/2023 157.48 cm 30.9 kg/m2 [address]127.[address] [facility] 07/29/2023 09:06:09 Date Recorded Systolic blood pressure Diastolic blood pressure Provider Name and Address Organization Details Last Updated DateTime 07/29/2023 124 mm[Hg] 76 mm[Hg] Viola Borges, [facility]- [address], [place], [address], [facility] 08/06/2023 12:27:43 Social History Question Answer Notes LastModified by Organizat ion Details LastModified Time Tobacco Smoking Status Never Smoker Saritha Trevino [facility], [facility] 01/08/2023 09:38:18 Do You Have An Advance Directive? No Information not available 09/04/2021 What Is Your Level Of Alcohol Consumption? None Information not available 09/04/2021 Are You Blind Or Do You Have Difficulty Seeing? No Information not available 09/04/2021 What Is Your Level Of Caffeine Consumption? Moderate Information not available 09/04/2021 How Much Tobacco Do You Chew? None Information not available 09/04/2021 In The 14 Days Before Symptom Onset, Have You Had Close Contact With A Laboratory-confir med COVID-19 While That Case Was Ill? No Information not available 09/04/2021 In The 14 Days Before Symptom Onset, Have You Had Close Contact With A Person Who Is Under Investigation For COVID-19 While That Person Was Ill? No Information not available 09/04/2021 Have You Been To An Area Known To Be High Risk For COVID-19? No Information not available 09/04/2021 Are You Deaf Or Do You Have Serious Difficulty Hearing? No Information not available 09/04/2021 What Type Of Diet Are You Following? REGULAR Information not available 09/04/2021 What Is The Highest Grade Or Level Of School You Have Completed Or The Highest Degree You Have Received? 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 No Information not available 09/04/2021 Do You Use Protection During Sex? No Information not available 09/04/2021 Do You Use Your Seat Belt Or Car Seat Routinely? Yes Information not available 09/04/2021 Do You Have Smoke And Carbon Monoxide Detectors In Your Home? Yes Information not available 09/04/2021 How Much Tobacco Do You Smoke? No Information not available 09/04/2021 Do You Feel Stressed (tense, Restless, Nervous, Or Anxious, Or Unable To Sleep At Night)? [id number] Information not available 01/08/2023 Do You Use Any Illicit Or Recreational Drugs? No Information not available 09/04/2021 Do You Use Sunscreen Routinely? Yes Information not available 09/04/2021 Have You Used IV Drugs? No Information not available 09/04/2021 Sex: Unknown Functional Status Question Answer Note LastModified by Organization D etails LastModified Time Are you able to walk? YESWOREST Information not available 09/04/2021 What is your exercise level? Moderate Information not available 09/04/2021 Mental Status None recorded. Family History Relationship Description Onset Age of this Age Resolved Age Notes LastModified by Organization Details LastModified Time Mother Endometriosi s (clinical) [email or web address] Not available 08:52:15 Mother Cyst of ovary [email or web address] Not available 07/28 08:52:15 Mother Disorder of thyroid gland [email or web address] Not available 2019 11:45:06 Mother Depressive disorder Not available 2021 10:38:48 Mother Diabetes mellitus Not available 2021 10:38:48 Mother Hypertensive disorder Not available 2021 10:38:48 Mother Hypercholest [email or web address] Not available 2021 10:38:48 Mother High risk Not available 2021 10:38:48 Father Depressive disorder [email or web address] Not available 2019 11:44:40 Father Psychotic disorder [email or web address] Not available 07/28 08:52:15 Father Mental disorder Not available 2021 10:38:48 Brother Mental disorder Not available 2021 10:38:48 Medical History Condition Response Allergies (Food, seasonal, environmental ) Y Anxiety Disorder Y Other Y Depression/ depression Y History of abnormal pap Y Acid Reflux (GERD) Y Polycystic ovary syndrome Y GI Problems Y Psychiatric Illness Y Gynecological History Statement/Question Response Flow Moderate Date of LMP 06/29/2023 N Was last menstrual period normal Y STIs/STDs N Date of control 07/08/2021 Vaginal Ring Abnormal Pap Y On BCP's at Conception? N HPV Vaccine N Colposcopy 04/27/2014 Duration of Flow (days) 2 Current Control Method Vaginal Rin g Are cycles usually normal Y Frequency of Cycle (Q days) 28 Sexually Active? Y Menses Monthly Y Age of first menstrual cycle 14 Date of Last Pap Smear 07/16/2021 Sexual Problems? N LMP Approximate N 09/04/2015 Obstetrics History GPAL:G 0 P 0 0 0 0 Type Value Living 0 Total 0 Past Encounters Encounter ID Performer Location Encounter Start Date Encounter Closed Date Diagnosis/Indication Diagnosis SNOMED-CT Code Diagnosis ICD10 Code Diagnosis Note [id number] [facility] [address] [address] 12/22/2019 11:41:37 12/24/2019 15:03:25 Dyspareunia 96386476 N94.810 Exam reveals +spastic tender bilateral levator ani/obtura tors which would contribute to her c/o pain with deep penetratio n during SA. We agreed to trial of pelvic floor therapy. order & contact info given. Will schedule. There also appears to be a component of vestibulit is present. VCG's sheet & instructio ns given. Unsure if this is simply due to products irritation or if neurologic al component also an issue as qtip scores were 4-5 out of 10 skenes/bar tholins glands. Vag cx's sent Reduced libido 9899541 R 68.82 On Lexapro which is effecting her libido/kenneth lity to have an orgasm. Another contributi ng factor could also be her control & the dyspareuni a that is currently going on. We discussed trial of Wellbutrin XL to offset the sexual side effects of Lexapro & agreed on additional labs to ensure no other issues. Counseled on medication R/B's, Most common side effects, & use. All questions were answered to patient satisfacti on. RTO x 4wks med check Irregular periods 714334 07 N92.6 We discussed proper use of nuvaring. If this issue continues after 3mos will pursue labs/TVUS. Likely just misuse of her control that extended absence of her cycle. [id number] [facility] [address] [address] 02/09/2020 14:41:02 02/10/2020 17:20:46 Dyspareunia 74717277 N94.810 HIGHLY encouraged Pelvic floor PT. She states she will call & make appt then return in 3mos for f/u to evaluate progress. We reviewed benefits of this therapy & goals we'd like to achieve. Reduced libido 1652333 R 68.82 Will continue wellbutrin XL 300mg daily. We discussed that her loss of desire/gian usal when it comes time for penetrativ e SA is more an anxiety response vs physiologi vidhi issue. Consider Trial of Testostero ne cream 1% 0.5mg to calf daily if the coping skills & PT are not enough. Also consider counseling for anxiety for this issue. [id number] Minnie Brandt MD [facility] [address] [address] 04/23/2021 16:31:00 04/24/2021 12:47:18 Amenorrhea 70827857 N91.2 Primary oligomenorrhea 33436133 N91.3 Contracept ion care management 673823168 Z30.9 Weight gain 4120219 R63. 5 [id number] Minnie Brandt MD [facility] [address],[place] [address] 07/16/2021 14:19:15 07/17/2021 16:53:42 Gynecologic examination 15480262 Z01.419 Contracept ion care management 151852989 Z30.9 Body mass index 30+ - obesity 298190605 Z68.36 Elevated blood-pressure reading without diagnosis of hypertension 703612421 R03.0 [id number] Viola Borges [facility] [address],[place] [address] 09/04/2021 10:11:05 09/04/2021 11:23:46 Vaginitis 24445827 N76.0 Suspect BV on exam with siginfican t vulval erythema/i rritation. Rx sentTreate d with Sample of solosec.Wi ll return if not feeling better Time spent in visit is a total of 15 mins with at least 50% of visit consisting of counseling and review of plan of care. [id number] Valerie Lerma [facility] [address],[place] [address] 01/08/2023 09:28:32 01/08/2023 10:58:55 Vaginitis 60679107 N76.0 suspect BV/yeastva ginitis/ST I panel sentvulvar care guidelines reviewedrx sent, r/b/a discussed Venereal d isease screening 356852087 Z11.3 Contracept ion care management 643667191 Z30.9 wants to restart nuvaringUP T (-)denies any contraindi cationsr/b /a reviewed, refills sentRTC for WWE Time spent in visit is a total of 30 mins with at least 50% of visit consisting of counseling and review of plan of care. [id number] Viola Borges [facility] [address],[place] [address] 07/29/2023 08:51:38 08/06/2023 13:25:55 Gynecologic examination 76454506 Z01.419 Take Calcium with Vitamin D 1200mg daily if not receiving in daily diet. It is strongly advised to have an annual flu shot and up can obtain at most pharmacies . If you have not had a TDap shot in the last 10 years you should obtain one as well. Discussed with patient & provided with informatio n regarding Gardisil vaccine to prevent the 4 strains for HPV that cause cervical cancer if under age 26. Encourage safe sexual practices, to use condoms and limit partners if not already in a monogamous relationsh ip. Do monthly self breast exams. Have mammogram yearly or every other year depending on family history. BRCA testing is now available for patients with strong genetic history of female cancer. If interested contact the office. Engage in daily exercise of low impact aerobic exercise 45-60 minutes 4-5 times weekly. Avoid tobacco and illicit drugs as well as using moderation with alcohol intake less than 1-2 8 oz beverages daily. This lifestyle behavior pattern will lead to less health conditions and longer life span. If BMI greater than 25 weight watchers or dietary consult advised. Patient received above instructio ns, and questions have been answered. If you have any questions please call or respond to this email. Patient was made aware of the patient portal and may obtain a paper copy of today's plan if desired. Pap due Screen declinedGe netic ScreenColo n ScreenDexa ScreenRout ine Labs PCPConside ring d/c of nuvaring moving forward. Vulvar vestibulitis 3083 3006 N94.810 Recurrent yeast issuesSwab sentRefer to urogyn vulvar specialist VCG s continuedB oric acid-repor ts failed suppressiv e therapy Vaginitis 72116974 N76.0 Suspect yeast on exam todayDiflu can sentSwab sent Counseled on medication R/B's, Most common side effects, & use. All questions were answered to patient satisfacti on. Contracept ion care management 629607254 Z30.9 Health Concerns Section Related Observation LastModified by Organization Detai ls LastModified Time None Recorded Concern Status LastModified by Organization Details LastModified Time None Recorded Advance Directives Directive N: Payers Encounter Date Sequence Insurance Name Policy Number Policy Dupont Covered Member ID Dupont Member ID Guarantor Name 04/23/2021 1 [facility] [id number] Mikaela Bryant [id number] Mikaela Bryant 07/16/2021 1 [facility] [id number] Mikaela Bryant [id number] Mikaela Bryant 09/04/2021 1 *SELF PAY* Me matt Bryant 01/08/2023 1 [facility] [id number] Mikaela Bryant [id number] Mikaela Bryant 07/29/2023 1 [place] [id number] Mikaela Bryant [id number] Mikaela Bryant Notes Date Note Type Note Provider Name and Address Organization Details Recorded Time 1 text/html 26yo G0 here for irregular bleeding- no period since 08/2020. Has always had irregular periods, in high school were q 3 mos. Got on OCP, then had mirena for 5 years with no bleeding, then on nuva ring for a couple years. Stopped it becuase periods were so light and it made her nervous. Since she stopped it, no period. Has never had DUNN for irregular periods. Also concerned because she has cut out fast food and soda and is still gaining weight. Minnie Brandt MD [address], [place], [address], [facility] 04/24/2021 12:33:13 2 text/html Patient is a 26yo G0 who presents for an annual exam. Last seen Apr, elevated testosterone diagnosing PCOS. On Nuva ring. Recently on stimulant for ADHD and losing weight, but BP is up.last pap-02/2019sexually zsjphv-rkmifwdjdsfhom-u uvaseatbelts-yexercise- ydepression-deniesdomes tic violence-deniestobacco- nconcerns- Minnie Brandt MD [address], [place], [address], [facility] 07/19/2021 11:27:11 2 text/html Vaginal/Vulvar ProblemReported bypatient.Notes:Here today vag itching, irritation, fishy odor, sore/sensitive in this area.Lasted since last .Used products that doesn't normally use.Used same towel as boyfriendThinks skin and pH thrown off by these things.Good about vuvlar care guidelines. CASSY [facility] [address], [place], [address], [facility] 09/04/2021 11:18:05 3 text/html 27yo N7aoulycza for evaluation of vaginal d/c, odors, itching, irritationsymptoms started 2 weeks agoneg pelvic painneg n/v/fno new partnersPCOS, on nuvaring but stopped 2-3 months ago - wants to restart. Periods very irregular due to PCOS - currently using withdrawal for BC CASSY Ruiz [address], [place], [address], [facility] 01/08/2023 10:57:52 4 text/html Annual GYNReported bypatient.Menstrual cycle:Normal menses Urinary symptoms:No hematuria; No incontinence Vulva:No genital lesion Vagina:Normal vaginal discharge Breast:No breast pain; No breast lump; No nipple discharge Current Contraception:Satisfied with current contraception; Nuvaring Sexual complaints:No sexual complaints; No pain during intercourse; Normal libido Menopausal Symptoms:No menopausal symptoms; Normal vaginal lubrication Psychological symptoms:No depression; No anxiety; No PMDD Preventive measures:Encourage self breast examination; Encourage regular exercise; Encourage no tobacco use; Encourage regular mammograms starting age 40 Continues to have issues in area of vestibule/vulva entry way which significantly impacts her relationship/ability to be intimate.She has dealt with this for >2yrs.She is in a supportive and loving relationship; but she feels very guilty for not being able to show the affection she would like to her partner for fear of vulva/vaginal pain.She uses multiple vulvar care guidelines; has hx of overall sensitive skin issues.Her issues have not resolved+dyspareunia entry & then begins to affect deeper penetrationTenses up during penetrative intercourse.Able to have an orgasm but usually doesn't because she is just trying to get through during sex. She expresses issues with chronic yeast/BV infections but no confirmed swabs on file at [facility].Feeling lost & distraught. Viola Borges, [facility]- [address], [place], [address], [place] [facility] 08/06/2023 12:31:34 OBGyn Episode No OBEpisode recorded.
--- OUTSIDE RECORDS SUMMARY | 2024-08-08 04:35 | XMS_ITS | Encounter Summary ---
Author Organization [facility] Address [address] [place] [address] Care Team Providers Care Reconciler Name Role Phone Jonna Naylor Primary Care Provider [phone] Jonna Naylor Unavailable [phone] Encounter Details Date Type Department Care Team (Late st Contact Info) Description 06/02/2021 dynaTrace softwaret Message Enc [facility] Family & Internal Medicine [facility] [address] [place] [address] Jonna Naylor FNP [address] [place] [address] tomorrows appointment Social History Tobacco Use Types Packs/Day Years [...] 3, please move on to questions 3-9 4 07/19/2020 Comments No Sex and Gender Information Value Date Recorded Sex Assigned at Not on file Legal Sex Female 8:16 PM CDT Gender Identity Female 07/15/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 No / Unsure 05/29/2021 10:31 AM CHEMISTRY PHYSICS TEACHER documented as of this encounter Plan of Treatment Not on file documented as of this encounter Visit Diagnoses Not on filedocumented in this encounter Additional Health Concerns Infection Onset Date Last Indicated Resolved Time COVID-19 Rule Out 07/27/2023 07/27/2023 07/27/2023 1:29 PM CDT Assessment Noted Time PHQ-9 Depression Total Score: 17 020 9:57 AM CHEMISTRY PHYSICS TEACHER documented as of this encounter Care Teams Reconciler Relationship Specialty Start Date End Date Jonna Naylor FNP [address] [place] [address] PCP - General Nurse Practitioner Family 03/30/19 Jonna Naylor FNP [address] [place] [address] Referring Physician Nurse Practitioner Family 04/08/19 documented as of this encounter
[2024-08-08 05:01] LABS: BEDSIDEPREGUCG Negative (Negative)
[2024-08-08 05:17] LABS: Basophils Absolute Auto 0.1 K/mm3 (0.0-0.1); Basophils Percent Auto 0.2 % (0.2-1.2); Eosinophils Percent Auto 0.1 % (0-4.4); Hematocrit 40.5 % (37.0-47.0); Hemoglobin 13.3 g/dL (12.0-15.0); Immature Granulocyte Absolute 0.12 K/mm3 (0.00-0.031); Immature Granulocyte Percent A 0.6 % (0-0.5); Lymphocytes Absolute Auto 1.27 K/mm3 (0.9-3.2); Lymphocytes Percent Auto 5.9 % (18.3-44.2); Mean Corpuscular HGB Conc 32.8 g/dl (32-36); Mean Corpuscular Hemoglobin 30.2 pg (26-34); Mean Platelet Volume 10.4 fl (7.4-10.4); Monocytes Absolute Auto 0.7 K/mm3 (0.1-0.6); Monocytes Percent Auto 3.2 % (2.6-8.5); Neutrophils Absolute Auto 19.3 K/mm3 (1.3-6.7); Platelet Count Result 315 k/mm3 (150-375); Red Cell Distribution Width 13.1 % (11.5-14.5); White Blood Count 21.5 K/mm3 (4.5-10.0)
[2024-08-08 05:24] LABS: Add Urine Microscopic? YES; Appearance Urine Clear (Clear); Bacteria Urine None Seen /hpf; Bilirubin Urine Negative (Negative); Blood Urine Non-Hemolyzed Trace (Negative); Color Urine Yellow (Yellow); Glucose Urine UA Negative (Negative); Ketones Urine Trace mg/dL (Negative); Leukocyte Esterase Ur Negative LEU/UL (Negative); Nitrate Urine Negative (Negative); Non Pathogenic Casts 0-2; Protein Urine Trace mg/dL (Negative); RBC Urine 0-2 /hpf (0-2); Squamous Epithelial Cell Urine Occasional /hpf (Few); Urobilinogen Urine 0.2 mg/dL (<2.0); WBC Urine 0-5 /hpf (0-3); pH Urine 5.5 (5.0-9.0)
[2024-08-08 05:27] LABS: Alanine Aminotransferase 20 U/L (6-35); Albumin Level 4.1 g/dL (3.5-5.1); Alkaline Phosphatase 101 U/L (38-126); Anion Gap 11 mmol/L (4-12); Aspartate Amino Transferase 23 U/L (14-36); Bilirubin,Total 0.4 mg/dL (0.2-1.3); Blood Urea Nitrogen 17 mg/dL (7-17); Calcium 9.8 mg/dL (8.4-10.2); Carbon Dioxide 21 mmol/L (22-30); Chloride 107 mmol/L (98-107); Estimated CRCL calculation 78 ml/min; Estimated Glomerular Filt Rate > 60; Glucose 124 mg/dL (65-110); Lipase 99 U/L (23-300); Potassium 3.8 mmol/L (3.4-5.0); Sodium 139 mmol/L (137-145)
--- NOTE | 2024-08-08 07:13 | ED_ITS ---
HPI - Abdominal Pain General Chief Complaint: Abdominal Pain Stated Complaint: left juan pablo abdominal pain, vomiting Time Seen by Provider: 08/08/24 07:13 History of Present Illness HPI narrative: Pt presents with llq abd pain since midnight. Pain radiates to back. Pt had vomiting. Pt denies fever or urinary symptoms Related Data Home Medications ?Medication ?Instructions ?Recorded ?Confirmed ?Last Taken ?Type Adderall XR 30 DAILY 08/13/22 Unknown History Lexapro 08/13/22 Unknown History Allergies Allergy/AdvReac Type Severity Reaction Status Date / Time cat dander Allergy Intermediate Other Verified 08/08/24 04:40 Review of Systems 2 Review of Systems: All systems reviewed & are unremarkable except as noted in HPI and below Exam 2 Const: General: healthy appearing and no acute distress Nutritional Appearance: well nourished Orientation/consciousness: patient oriented x3 Limitations: no limitations Neck: Neck: normal visual inspection Resp: Effort & Inspection: normal respiratory effort Auscultation: clear to auscultation bilaterally Cardio: Rate: regular rate Rhythm: regular rhythm GI: GI Palp: Yes Soft to palpation and No Tenderness to palpation present (GI) Auscultation: normal bowel sounds : General: Yes CVA tenderness on the left Skin: General skin exam: normal color Rashes: no rashes Neuro: General: patient oriented x3, moves all extremities, no focal motor deficits and CN's II-XI intact bilaterally Speech: normal speech Extrem: General: normal to inspection and no clubbing, cyanosis or edema Psych: Mental Status: mental status grossly normal Affect: normal affect Attitude: cooperative Course Vital Signs Vital signs: Vital Signs Temperature 97.8 F 08/08/24 04:33 Pulse Rate 88 08/08/24 04:33 Respiratory Rate 16 08/08/24 04:33 Blood Pressure 162/84 H 08/08/24 04:33 Pulse Oximetry 100 08/08/24 04:33 Oxygen Delivery Room Air 08/08/24 04:33 Temperature 97.9 F 08/08/24 08:18 Pulse Rate 93 08/08/24 09:14 Respiratory Rate 18 08/08/24 09:14 Blood Pressure 138/87 08/08/24 09:14 Pulse Oximetry 100 08/08/24 09:14 Oxygen Delivery Room Air 08/08/24 04:33 MDM - Abdominal Pain MDM Narrative Medical decision making narrative: Pt presents with LLQ and left flank pain for a few hrs. Will get UA labs and CT. WBC elevated but UA clear. Pt has 3mm left uvj stone. wbc likely reactive. home on pain meds and flomax with uroloogy follow up Lab Data 08/08/24 04:58 08/08/24 04:58 Labs: Lab Results 08/08/24 08/08/24 Range/Units 04:58 04:59 WBC 21.5 H (4.5-10.0) K/mm3 RBC 4.40 (4.2-5.4) M/mm3 Hgb 13.3 (12.0-15.0) g/dL Hct 40.5 (37.0-47.0) % MCV 92.0 (80-100) fl MCH 30.2 (26-34) pg MCHC 32.8 (32-36) g/dl RDW 13.1 (11.5-14.5) % Plt Count 315 (150-375) k/mm3 MPV 10.4 (7.4-10.4) fl Immature Gran % (Auto) 0.6 H (0-0.5) % Neut % (Auto) 90.0 H (45.5-73.1) % Lymph % (Auto) 5.9 L (18.3-44.2) % [place] % (Auto) 3.2 (2.6-8.5) % Eos % (Auto) 0.1 (0-4.4) % Baso % (Auto) 0.2 (0.2-1.2) % Lymph # (Auto) 1.27 (0.9-3.2) K/mm3 [place] # (Auto) 0.7 H (0.1-0.6) K/mm3 Eos # (Auto) 0.0 (0-0.3) K/mm3 Baso # (Auto) 0.1 (0.0-0.1) K/mm3 Abs Immat Gran (auto) 0.12 H (0.00-0.031) K/mm3 Absolute Neuts (auto) 19.3 H (1.3-6.7) K/mm3 Absolute Nucleated RBC 0.000 (0.0-0.012) K/mm3 Nucleated RBC % 0.0 (0.0-0.2) % Sodium 139 (137-145) mmol/L Potassium 3.8 (3.4-5.0) mmol/L Chloride 107 (98-107) mmol/L Carbon Dioxide 21 L (22-30) mmol/L Anion Gap 11 (4-12) mmol/L BUN 17 (7-17) mg/dL Creatinine 0.86 (0.7-1.0) mg/dL Estim Creat Clear Calc 78 ml/min Estimated GFR > 60 (59 - ) Glucose 124 H (65-110) mg/dL Calcium 9.8 (8.4-10.2) mg/dL Total Bilirubin 0.4 (0.2-1.3) mg/dL AST 23 (14-36) U/L ALT 20 (6-35) U/L Alkaline Phosphatase 101 (38-126) U/L Total Protein 7.0 (6.3-8.2) g/dL Albumin 4.1 (3.5-5.1) g/dL Lipase 99 (23-300) U/L Urine Color Yellow (Yellow) Urine Appearance Clear (Clear) Urine pH 5.5 (5.0-9.0) Ur Specific [place] 1.020 (1.001-1.035) Urine Protein Trace (Negative) mg/dL Urine Glucose (UA) Negative (Negative) mg/dL Urine Ketones Trace H (Negative) mg/dL Ur Blood (Man) Non-hemolyzed trace H (Negative) Urine Nitrate Negative (Negative) Urine Bilirubin Negative (Negative) Urine Urobilinogen 0.2 (<2.0) mg/dL Leukocyte Esterase Rfl Negative (Negative) JAKUB/UL Urine RBC 0-2 (0-2) /hpf Urine WBC 0-5 (0-3) /hpf Ur Squamous Epith Cells Occasional (Few) /hpf Urine Bacteria None seen /hpf Urine Casts 0-2 POC Urine HCG, Qual Negative (Negative) Imaging Data Radiologist's impression: ITS Impressions Abdomen/Pelvis CT 08/08/24 07:33 IMPRESSION: 1. 3 mm stone at left ureterovesicular junction with mild left hydronephrosis and hydroureter. 2. 3 mm nonobstructing left kidney stone. Discharge Plan Discharge Clinical Impression: Ureterolithiasis Patient Disposition: Home, Self-Care Condition: Improved Instructions: Antibiotic Form, Kidney Stones (ED) Patient Language: Guinean Prescriptions: New tamsulosin [Flomax] 0.4 mg capsule 0.4 mg PO DAILY Qty: 10 0RF ondansetron 4 mg tablet,disintegrating 4 mg PO Q8H PRN (Reason: nausea and vomiting) Qty: 10 0RF hydrocodone-acetaminophen 5-325 mg tablet 1 tablet PO Q6H PRN (Reason: pain) Qty: 14 0RF No Action Adderall XR 30 DAILY Lexapro cyclobenzaprine 10 mg tablet 10 mg PO TID PRN (Reason: muscle spasm) Qty: 20 0RF naproxen 375 mg tablet 375 mg PO BID Qty: 14 0RF Follow-up/Referrals: Roland Chaves MD [Physician] - [facility],Paul Bello MD [Primary Care Provider] -
[2024-08-08] MEDS: KETOROLAC 15 MG/ML VIAL (*BKC) IV PUSH (07:58)
[2024-08-08] MEDS: ONDANSETRON INJ 4 MG/2 ML VIAL IV PUSH (08:12)
[2024-08-08 08:18] VITALS: BP 140/94; PULSE 87; RESP 18; TEMP 36.6; O2SAT 100
--- OUTSIDE RECORDS SUMMARY | 2024-08-08 08:39 | XMS_ITS | Clinical Summary ---
Author Organization [facility] Address [facility] [place] [address] Care Team Providers Care Telephone Maintenance Mechanic Name Role Phone Dayday Jonna DAVID Primary Care Provider [phone] Jonna Naylor Unavailable [phone] Allergies Active Allergy Reactions Criticality Noted Date [...] Type Department Care Team Description 07/08/2024 Telephone [facility] Internal [address] [phone] Jonna Naylor FNP Medication Request 06/07/2024 Telephone [facility] Internal [address] [phone] Jonna Naylor FNP Medication Request 06/01/2024 Telephone [facility] Internal [address] [phone] Jonna Naylor FNP Lab Results 05/30/2024 Telephone [facility] Internal [address] [phone] Jonna Naylor FNP Lab Results from Last [...] CDT Gender Identity Female 07/15/2021 2:16 PM BREWING DIRECTOR Sexual Orientation Not on file Last Filed Vital Signs Vital Sign Reading Time Taken Comments Blood Pressure 135/76 04/29/2024 9:11 AM BREWING DIRECTOR Pulse 94 04/29/2024 9:11 AM BREWING DIRECTOR Temperature 37 C (98.6 F) 04/29/2024 9:11 AM BREWING DIRECTOR Respiratory Rate 18 04/29/2024 9:11 AM BREWING DIRECTOR Oxygen Saturation 98% 04/29/2024 9:11 AM BREWING DIRECTOR Inhaled Oxygen Concentration - - Weight 76.7 kg (169 lb 1.6 oz) 04/29/2024 9:11 A M BREWING DIRECTOR Height 157.5 cm (5' 2 ) 04/29/2024 9:11 AM BREWING DIRECTOR Body Mass Index 30.93 04/29/2024 9:11 AM BREWING DIRECTOR Plan of Treatment Health Maintenance Due Date Last Done Comments Annual Physical 1997 Cervical Cancer Screening Pap with HPV Testing (Age 30 to 64) Every 5 Years 02/12/2024 PHQ-2 (Physician [place]) 05/18/2024 07/27/2023 Cervical Cancer Screening Pap Smear [...] TO HCV RNA Routine 05/06/2024 8:04 AM BREWING DIRECTOR from Last 3 Months or Most Recently Relevant to Health Maintenance Results * HEPATITIS C ANTIBODY W/RFX TO HCV RNA (05/06/2024 8:04 AM BREWING DIRECTOR) HEPATITIS C AB NON-REACT JESUS NON-REACT JESUS [employer] [facility] Comment: HCV antibody was non-reactive. There is no laboratory evidence of HCV infection. In most cases, no further action is required. However, if recent HCV exposure is suspected, a test for HCV RNA (test code 58925) is suggested. For additional information please refer to http://education.[employer]/faq/VKH51r9 (This link is being provided for informational/ educational purposes only.) 05/06/2024 8:04 AM BREWING DIRECTOR 05/06/2024 8:11 AM BREWING DIRECTOR Narrative [employer] [facility] - 05/27/2024 1:38 PM BREWING DIRECTOR FASTING:YES FASTING: YES Resulting Agency Comment Performing Organization Information: Site ID: [place] Name: [email or web address] Address: [address] [place] [address] Director: Yovani Zavala MD us [facility]onna [facility] Final Result [employer] - JEB EVANS [employer] [facility] [address] [place] [address] from Last 3 Months or Most Recently Relevant to Health Maintenance Insurance [facility] Care Teams Telephone Maintenance Mechanic Relationship Specialty Start Date End Date Jonna Naylor FNP [address] [place] [address] PCP - General Nurse Practitioner Family 03/30/19 Jonna Naylor FNP [address] [place] [address] Referring Physician Nurse Practitioner Family 04/08/19
--- OUTSIDE RECORDS SUMMARY | 2024-08-08 08:39 | XMS_ITS | Encounter Summary ---
Author Organization [facility] Address [facility] [place] [address] Care Team Providers Care Men'S And Boys' Clothing Salesperson Name Role Phone Jonna Naylor Primary Care Provider [phone] Jonna Naylor Unavailable [phone] Encounter Details Date Type Department Care Team (Late st Contact Info) Description 04/24/2023 REES46 Message [facility] Family Medicine [address] [address] [place], 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
--- OUTSIDE RECORDS SUMMARY | 2024-08-08 08:39 | XMS_ITS | Clinical Summary ---
Author Organization [facility] Address [address] [place] [address] Care Team Providers Care Pump Erector Name Role Phone Paul Baltazar MD Primary Care Provider [phone] Source Comments [facility],non-owned Affiliates and Associated Physician Practices is amultiple site organization consisting of ambulatory clinics and hospital sitesin [place], [place], [place] and [place]. This disclosure is being madepursuant to the Care Everywhere program and may not contain all information available regarding this patient. Last updated 18.[facility] Allergies Active Allergy Reactions Criticality Noted Date [...] age to complete this topic Care Teams Pump Erector Relationship Specialty Start Date End Date Paul Baltazar MD PCP - General 03/11/13
--- OUTSIDE RECORDS SUMMARY | 2024-08-08 08:39 | XMS_ITS | Encounter Summary ---
Author Organization [facility] Address [address] [place] [address] Care Team Providers Care Well Point Pumping Supervisor Name Role Phone Jonna Naylor Primary Care Provider [phone] Jonna Naylor Unavailable [phone] Encounter Details Date Type Department Care Team (Late st Contact Info) Description 04/02/2019 [employer] Message Enc [facility] Medical Group Family & Internal Medicine [facility] [address] [place] [address] Jonna Naylor FNP [address] [place] [address] Medication Questions Social History Tobacco [...] CDT Gender Identity Female 07/15/2021 2:16 PM CASE MANAGEMENT DIRECTOR Sexual Orientation Not on file documented as of this encounter Plan of Treatment Not on file documented as of this encounter Visit Diagnoses Not on filedocumented in this encounter Additional Health Concerns Infection Onset Date Last Indicated Resolved Time COVID-19 Rule Out 07/27/2023 07/27/2023 07/27/2023 1:29 PM CDT documented as of this encounter Care Teams Well Point Pumping Supervisor Relationship Specialty Start Date End Date Jonna Naylor FNP [address] [place] [address] PCP - General Nurse Practitioner Family 03/30/19 Jonna Naylor FNP [address] [place] [address] Referring Physician Nurse Practitioner Family 04/08/19 documented as of this encounter
--- OUTSIDE RECORDS SUMMARY | 2024-08-08 08:40 | XMS_ITS | Encounter Summary ---
Author Organization [facility] Address [facility] [place] [address] Care Team Providers Care Pneumatic Hoist Operator Name Role Phone Jonna Naylor Primary Care Provider Jonna Naylor Unavailable [phone] Encounter Details Date Type Department Care Team (Late st Contact Info) Description 08/20/[address] [facility] Patient Accounts [address] [place] [address] [facility] Provider Monthly Credit Card Payment Social [...] CDT Gender Identity Female 07/15/2021 2:16 PM ACCOUNTING AUDITOR Sexual Orientation Not on file documented as of this encounter Plan of Treatment Not on file documented as of this encounter Visit Diagnoses Not on filedocumented in this encounter Additional Health Concerns Infection Onset Date Last Indicated Resolved Time COVID-19 Rule Out 07/27/2023 07/27/2023 07/27/2023 1:29 PM CDT Assessment Noted Time PHQ-9 Depression Total Score: 20 022 4:32 PM ACCOUNTING AUDITOR documented as of this encounter Care Teams Pneumatic Hoist Operator Relationship Specialty Start Date End Date Jonna Naylor FNP [address] [place] [address] PCP - General Nurse Practitioner Family 03/30/19 Jonna Naylor FNP [address] [place] [address] Referring Physician Nurse Practitioner Family 04/08/19 documented as of this encounter
--- OUTSIDE RECORDS SUMMARY | 2024-08-08 08:40 | XMS_ITS | Encounter Summary ---
Author Organization [facility] Address [address] [place] [address] Care Team Providers Care Environmental Attorney Name Role Phone Jonna Naylor Primary Care Provider [phone] Jonna Naylor Unavailable [phone] Encounter Details Date Type Department Care Team (Late st Contact Info) Description 06/02/2021 [employer] Message Enc [facility] Medical Group Family & Internal Medicine [facility] [address] [place] [address] Jonna Naylor FNP [address] [place] [address] tomorrows appointment Social History Tobacco [...] CDT Gender Identity Female 07/15/2021 2:16 PM WEB UI DESIGNER Sexual Orientation Not on file COVID-19 Exposure Response Date Recorded In the last month, have you been in contact with someone who was confirmed or suspected to have Coronavirus / COVID-19? No / Unsure 05/29/2021 10:31 AM WEB UI DESIGNER documented as of this encounter Plan of Treatment Not on file documented as of this encounter Visit Diagnoses Not on filedocumented in this encounter Additional Health Concerns Infection Onset Date Last Indicated Resolved Time COVID-19 Rule Out 07/27/2023 07/27/2023 07/27/2023 1:29 PM CDT Assessment Noted Time PHQ-9 Depression Total Score: 17 020 9:57 AM WEB UI DESIGNER documented as of this encounter Care Teams Environmental Attorney Relationship Specialty Start Date End Date Jonna Naylor FNP [address] [place] [address] PCP - General Nurse Practitioner Family 03/30/19 Jonna Naylor FNP [address] [place] [address] Referring Physician Nurse Practitioner Family 04/08/19 documented as of this encounter
[2024-08-08 09:14] VITALS: BP 138/87; PULSE 93; RESP 18; O2SAT 100
== END 2024-08-08 09:15 | disposition home or self-care (01) ==
PROVIDERS: Student in an Organized Health Care Education/Training Program; Emergency Provider Emergency Medicine; PCP Internal Medicine
DX: N20.1 Calculus of ureter (principal)
CPT/HCPCS: 36415; 74177; 80053; 81001; 81025; 83690; 85025; 96374; 96375; 99284; J1885; J2405; Q9967

== ENCOUNTER 2025-01-07 13:15 | Emergency (ER) | payer OTHER, SELFPAY ==
--- NOTE | ~2025-01-07 | XR_ITS ---
XR ankle RT min 3V 01/07/2025 13:54 INDICATION: Right ankle pain after fall PROCEDURE: 4 views right ankle COMPARISON: No prior studies for comparison. FINDINGS: Fracture, dislocation or subluxation is not identified. The soft tissues appear within normal limits. No foreign bodies are identified. IMPRESSION: 1: NO ACUTE BONE OR JOINT ABNORMALITY IDENTIFIED. Reviewed, dictated and finalized at location O.
--- OUTSIDE RECORDS SUMMARY | 2025-01-07 13:18 | XMS_ITS | Clinical Summary ---
Author Organization [facility] Address [facility] [place] [address] Care Team Providers Care Client Relationship Manager Name Role Phone Dayday Jonna DAVID Primary Care Provider [phone] Jonna Naylor Unavailable [phone] Allergies Active Allergy Reactions Criticality Noted Date [...] 3 4 Active amphetamine-dextro amphetamine (ADDERALL) 30 mg tabletIndications: Attention deficit hyperactivity disorder (ADHD), combined type Take 1 tablet (30 mg total) by mouth 2 (two) times daily. 60 tablet 5 Active amphetamine-dextro amphetamine (ADDERALL) 30 MG tabletIndications: Attention deficit hyperactivity disorder (ADHD), combined type Take 1 tablet (30 mg total) by mouth 2 (two) times daily. 60 tablet 5 01/06/20 25 Discontinu ed(Reorder ) Active Problems Problem Noted Date Diagnosed Date [...] of torso 12/05/2021 024 Non-recurrent acute suppurat ivonne otitis media of left ear without spontaneous rupture of tympanic membrane 07/07/2019 06/24/2021 Hearing loss of left ear due to cerumen impaction 07/07/2019 07/17/2021 Cough 04/10/2019 07/17/2021 Anxiety 04/10/2019 07/17/2021 Ankle pain 04/17/2016 07/17/2021 Neck pain 12/17/2015 07/17/2021 Breast lump 11/28/2015 07/17/2021 Encounters Date Type Department Care Team Description 12/06/2024 Orders Only [facility] Family & Internal Medicine [address] [phone] Jonna Naylor FNP 12/06/2024 Orders Only [facility] Family & Internal Medicine [address] [phone] Jonna Naylor FNP 12/06/2024 Telephone [facility] Family & Internal Medicine [address] [phone] KristinaraJonnaJOANN Medication Request 11/07/2024 Telephone [facility] Family & Internal [address] [phone] KristinaraJonna JOANN Medication Request 10/28/2024 Telephone [facility] Internal [address] [phone] Dayday JOANN Coyle Other from Last 3 Months Immunizations Immunization Administration Dates Next Due DTaP (Daptacel) 06/05/1998, [...] CDT Gender Identity Female 07/15/2021 2:16 PM VISITOR SERVICES SPECIALIST Sexual Orientation Not on file Last Filed Vital Signs Vital Sign Reading Time Taken Comments Blood Pressure 135/76 04/29/2024 9:11 AM VISITOR SERVICES SPECIALIST Pulse 94 04/29/2024 9:11 AM VISITOR SERVICES SPECIALIST Temperature 37 C (98.6 F) 04/29/2024 9:11 AM VISITOR SERVICES SPECIALIST Respiratory Rate 18 04/29/2024 9:11 AM VISITOR SERVICES SPECIALIST Oxygen Saturation 98% 04/29/2024 9:11 AM VISITOR SERVICES SPECIALIST Inhaled Oxygen Concentration - - Weight 76.7 kg (169 lb 1.6 oz) 04/29/2024 9:11 A M VISITOR SERVICES SPECIALIST Height 157.5 cm (5' 2) 04/29/2024 9:11 AM VISITOR SERVICES SPECIALIST Body Mass Index 30.93 04/29/2024 9:11 AM VISITOR SERVICES SPECIALIST Plan of Treatment Upcoming Encounters Date Type Department Care Team (Late st Contact Info) Description 02/03/2025 7:20 AM CDT Office Visit [facility] Medical Group Family & Internal Medicine - [address] [address] Jonna Naylor FNP [address] [place] [address] Health Maintenance Due Date Last Done Comments Annual Physical 1997 HPV Vaccines (1 - 3-dose SCDM series) 2021 Cervical Cancer Screening Pap with HPV Testing (Age 30 to 64) Every 5 Years 02/12/2024 PHQ-2 (Physician [place]) 05/18/2024 07/27/2023 Cervical Cancer Screening Pap Smear [...] on patient's age to complete this topic Hepatitis C Completed 05/06/2024 Meningococcal B Vaccine Aged Out No l onger eligible based on patient's age to complete this topic Pneumococcal Vaccine: Pediatrics (0 to 5 Years) and At-Risk Patients (6 to 49 Years) Aged Out No longer eligible based on patient's age to complete this topic RSV Immunizations Under 20 Months Aged Out No longer eligible based on patient's age to complete this topic Procedures Procedure Name Priority Date/Time Associated Diagnosis Comments HEPATITIS C ANTIBODY W/RFX TO HCV RNA Routine 05/06/2024 8:04 AM VISITOR SERVICES SPECIALIST from Last 3 Months or Most Recently Relevant to Health Maintenance Results * HEPATITIS C ANTIBODY W/RFX TO HCV RNA (05/06/2024 8:04 AM VISITOR SERVICES SPECIALIST) HEPATITIS C AB NON-REACT IVONNE NON-REACT IVONNE [facility] Comment: HCV antibody was non-reactive. There is no laboratory evidence of HCV infection. In most cases, no further action is required. However, if recent HCV exposure is suspected, a test for HCV RNA (test code 96895) is suggested. For additional information please refer to http://education.[employer]/faq/AIY08t6 (This link is being provided for informational/ educational purposes only.) 05/06/2024 8:04 AM VISITOR SERVICES SPECIALIST 05/06/2024 8:11 AM VISITOR SERVICES SPECIALIST Narrative [facility] - 05/27/2024 1:38 PM VISITOR SERVICES SPECIALIST FASTING:YES FASTING: YES Resulting Agency Comment Performing Organization Information: Site ID: [id number] Name: [facility] Address: [address] [address] Director: Yovani Zavala MD us Jonna [facility] Final Result [facility] [id number] [address], from Last 3 Months or Most Recently Relevant to Health Maintenance Insurance [facility] Care Teams Client Relationship Manager Relationship Specialty Start Date End Date Jonna Naylor FNP [address] [place] [address] PCP - General Nurse Practitioner Family 03/30/19 Jonna Naylor FNP [address] [place] [address] Referring Physician Nurse Practitioner Family 04/08/19
--- OUTSIDE RECORDS SUMMARY | 2025-01-07 13:18 | XMS_ITS | Encounter Summary ---
Author Organization [facility] Address [address] [place] [address] Care Team Providers Care Art Conservator Name Role Phone Jonna Naylor Primary Care Provider [phone] Jonna Naylor Unavailable [phone] Encounter Details Date Type Department Care Team (Late st Contact Info) Description 06/02/2021 galaxyadvisorst Message Enc [facility] Family & Internal Medicine [facility] [address] [place] [address] oJnna Naylor FNP [address] [place] [address] tomorrows appointment Social History Tobacco [...] CDT Gender Identity Female 07/15/2021 2:16 PM NUCLEAR MEDICINE SPECIALIST Sexual Orientation Not on file COVID-19 Exposure Response Date Recorded In the last month, have you been in contact with someone who was confirmed or suspected to have Coronavirus / COVID-19? No / Unsure 05/29/2021 10:31 AM NUCLEAR MEDICINE SPECIALIST documented as of this encounter Plan of Treatment Upcoming Encounters Date Type Department Care Team (Late st Contact Info) Description 02/03/2025 7:20 AM CDT Office Visit [facility] Family & Internal Medicine - [address] [address] Jonna Naylor FNP [address] [place] [address] documented as of this encounter Visit Diagnoses Not on filedocumented in this encounter Additional Health Concerns Infection Onset Date Last Indicated Resolved Time COVID-19 Rule Out 07/27/2023 07/27/2023 07/27/2023 1:29 PM CDT Assessment Noted Time PHQ-9 Depression Total Score: 17 020 9:57 AM NUCLEAR MEDICINE SPECIALIST documented as of this encounter Care Teams Art Conservator Relationship Specialty Start Date End Date Jonna Naylor FNP [address] [place] [address] PCP - General Nurse Practitioner Family 03/30/19 Jonna Naylor FNP [address] [place] [address] Referring Physician Nurse Practitioner Family 04/08/19 documented as of this encounter
--- OUTSIDE RECORDS SUMMARY | 2025-01-07 13:18 | XMS_ITS | Encounter Summary ---
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 Sexual Orientation Not on file documented as of this encounter Plan of Treatment Upcoming Encounters Date Type Department Care Team ([facility] Contact Info) Description 02/03/2025 7:20 AM CDT Office Visit [facility] Family & Internal Medicine [address] [phone] Jonna Naylor FNP [address] [place] [address] documented as of this encounter Visit Diagnoses Not on filedocumented in this encounter Additional Health Concerns Infection Onset Date Last Indicated Resolved Time COVID-19 Rule Out 07/27/2023 07/27/2023 07/27/2023 1:29 PM CDT Assessment Noted Time PHQ-9 Depression Total Score: 023 8:48 AM CDT documented as of this encounter Care Teams Seam Sewer Relationship Specialty Start Date End Date Jonna Naylor FNP [address] [place] [address] PCP - General Nurse Practitioner Family 03/30/19 Jonna Naylor FNP [address] [place] [address] Referring Physician Nurse Practitioner Family 04/08/19 documented as of this encounter
--- OUTSIDE RECORDS SUMMARY | 2025-01-07 13:18 | XMS_ITS | Clinical Summary ---
Author Organization [facility] Address [address] [place] [address] Care Team Providers Care Surgical Nurse Practitioner Name Role Phone Paul Baltazar MD Primary Care Provider [phone] Source Comments [facility],non-owned Affiliates and Associated Physician Practices is amultiple site organization consisting of ambulatory clinics and hospital sitesin [place], [place], [place] and [place]. This disclosure is being madepursuant to the Care Everywhere program and may not contain all information available regarding this patient. Last updated 18.[facility] Allergies Active Allergy Reactions Criticality Noted Date Comments Other Other 11/11/2012 She passed out taking her 2nd dose of guardisil Medications * Be aware that medications may not be up to date on this document. Alwaysverify current medications with the patient. amphetamine-dex troamphetamine (Adderall) 10 MG tablet TAKE 1 TABLET BY MOUTH IN THE EARLY AFTERNOON NEEDED 4 Active amphetamine-dex troamphetamine (Adderall) 20 MG tablet TAKE 1 TABLET BY MOUTH EARLY AFTERNOON NEEDED 4 Active amphetamine-dex troamphetamine (Adderall) 10 MG tablet TAKE 1 TABLET BY MOUTH IN THE EARLY AFTERNOON NEEDED Active amphetamine-dex troamphetamine (Adderall) 30 MG tablet 4 Active ARIPiprazole (Abilify) 2 MG tablet 4 Active escitalopram (Lexapro) 20 MG tablet Active Active Problems Problem Noted Date Diagnosed [...] drink = 0.6 oz pur e alcohol) Comments No Sex and Gender Information Value Date Recorded Sex Assigned at Female 12/07/2020 10:39 AM CDT 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 Gender Identity Female 12/07/2020 10:39 AM CDT [...] 8:20 AM CDT Height 162.6 cm (5' 4) 08/26/2023 8:20 AM CDT Body Mass Index 29.18 08/26/2023 8:20 AM CDT Plan of Treatment Health Maintenance Due Date Last Done Comments HIV SCREENING 2009 HEPATITIS C SCREENING 02/07/2012 DTAP/TDAP/TD VACCINES (1 - Tdap) 2013 HEPATITIS B VACCINE (1 of 3 - 19+ 3-dose series) 2013 PAP SMEAR 2015 HPV VACCINE (1 - 3-dose SCDM series) 2021 COVID-19 VACCINE (2 - 2023-2 5 season) 2024 07/23/2020 DEPRESSION SCREENING 05/18/2024 INFLUENZA VACCINE (#1) 2025 ZOSTER VACCINE (1 of 2) 02/12/2044 HIB [...] on patient's age to complete this topic Insurance ANTHEM Care Teams Surgical Nurse Practitioner Relationship Specialty Start Date End Date Paul Baltazar MD PCP - General 03/11/13
--- OUTSIDE RECORDS SUMMARY | 2025-01-07 13:18 | XMS_ITS | Encounter Summary ---
Author Organization [facility] Address [address] [place] [address] Care Team Providers Care Collision Repairer Name Role Phone Jonna Naylor Primary Care Provider [phone] Jonna Naylor Unavailable [phone] Encounter Details Date Type Department Care Team (Late Contact Info) Description 04/02/2019 [employer] Message Enc [facility] Family & Internal Medicine [address] [phone] Jonna Naylor FNP [address] [place] [address] Medication Questions Social History Tobacco [...] CDT Gender Identity Female 07/15/2021 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 Sexual Orientation Not on file documented as of this encounter Plan of Treatment Upcoming Encounters Date Type Department Care Team (Late st Contact Info) Description 02/03/2025 7:20 AM CDT Office Visit [facility] Family & Internal [address] [address] Jonna Naylor FNP [address] [place] [address] documented as of this encounter Visit Diagnoses Not on filedocumented in this encounter Additional Health Concerns Infection Onset Date Last Indicated Resolved Time COVID-19 Rule Out 07/27/2023 07/27/2023 07/27/2023 1:29 PM CDT documented as of this encounter Care Teams Collision Repairer Relationship Specialty Start Date End Date Jonna Naylor FNP [address] [place] [address] PCP - General Nurse Practitioner Family 03/30/19 Jonna Naylor FNP [address] [place] [address] Referring Physician Nurse Practitioner Family 04/08/19 documented as of this encounter
--- OUTSIDE RECORDS SUMMARY | 2025-01-07 13:18 | XMS_ITS | Encounter Summary ---
Author Organization [facility] Address [facility] [place] [address] Care Team Providers Care Business Office Director Name Role Phone Jonna Naylor Primary Care Provider [phone] Jonna Naylor Unavailable [phone] Encounter Details Date Type Department Care Team (Late Contact Info) Description 08/20/2022 My eStore App [facility] Patient Accounts [address] [place] [address] 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 Sexual Orientation Not on file documented as of this encounter Plan of Treatment Upcoming Encounters Date Type Department Care Team (Late Contact Info) Description 02/03/2025 7:20 AM CDT Office Visit [facility] Family & Internal Medicine [address] [address] Jonna Naylor FNP [address] [place] [address] documented as of this encounter Visit Diagnoses Not on filedocumented in this encounter Additional Health Concerns Infection Onset Date Last Indicated Resolved Time COVID-19 Rule Out 07/27/2023 07/27/2023 07/27/2023 1:29 PM CDT Assessment Noted Time PHQ-9 Depression Total Score: 20 022 4:32 PM MAINSPRING TORQUE TESTER documented as of this encounter Care Teams Business Office Director Relationship Specialty Start Date End Date Jonna Naylor FNP [address] [place] [address] PCP - General Nurse Practitioner Family 03/30/19 Jonna Naylor FNP [address] [place] [address] Referring Physician Nurse Practitioner Family 04/08/19 documented as of this encounter
--- OUTSIDE RECORDS SUMMARY | 2025-01-07 13:18 | XMS_ITS | Patient Health Record ---
Author Organization [facility] Address [address] [place], [place] [id number] Care Team Providers Care Servomechanism Assembler Name Role Phone MARY Ha Unavailable [phone] Jonna Naylor Unavailable Unavailable Reason For Referral No Information Plan Of Treatment No Information Insurance Providers Payer Name Payer Address Payer Phone Subscriber Number Group Number Insured Name Patient Relationship to Insured Coverage Start Date Coverage End Date GILMAR Lopez / JS [id number] [place] [id number] FRANKIE GONZALEZ Natural Child - Insured has Financial Responsibility
[2025-01-07 13:22] VITALS: BP 151/91; PULSE 124; RESP 20; TEMP 36.8; O2SAT 99
[2025-01-07 14:06] VITALS: BP 149/84; PULSE 101; RESP 16; O2SAT 99
--- NOTE | 2025-01-07 14:30 | ED_ITS ---
HPI - Extremity Injury (Lower) General Chief Complaint: Extremity Injury, Lower Stated Complaint: R. ankle injury, ambulatory Time Seen by Provider: 01/07/25 14:06 History of Present Illness HPI Narrative: 29-year-old female presents with right ankle pain insert last night. Patient states she was walking on stairs and rolled her ankle and fell to the ground. patient states she felt her ankle pop. patient is having pain with ambulation and movement since the fall. patient denies any hx of ankle problems. no other complaints Onset (ago): day(s) (1) Injury: Right: ankle Associated symptoms: swelling Related Data Home Medications ?Medication ?Instructions ?Recorded ?Confirmed ?Last Taken ?Type Adderall XR 30 DAILY 08/13/22 Unknown H istory Lexapro 08/13/22 Unknown History Allergies Allergy/AdvReac Type Severity Reaction Status Date / Time adhesive tape Allergy Intermediate Rash Verified 01/07/25 13:25 cat dander Allergy Intermediate Other Verified 01/07/25 13:25 latex Allergy Intermediate Rash Verified 01/07/25 13:25 Review of Systems Review of Systems: A 10 system review of systems was completed on the patient and is negative except for what is stated in the HPI. Nursing and ancillary documentation was reviewed. Exam Narrative: GENERAL: Well-appearing, well-nourished, and in no acute distress. HEAD: Normocephalic, atraumatic. EYES: PERRLA and EOMI. ENT: Nares clear, no rhinorrhea or epistaxis. Mucous membranes moist. NECK: Supple. CHEST: Clear to auscultation. No respiratory distress. HEART: Regular rate and rhythm. No murmur heard. Normal peripheral pulses. ABDOMEN: Soft, nontender, nondistended, normal active bowel sounds. EXTREMITIES: Right lateral ankle tenderness, increased tenderness with movement SKIN: Warm, dry, no rash. Ecchymosis to right lateral ankle NEURO: No focal deficits. Alert and oriented x3. PSYCH: Normal mood and affect. Extrem: Right lower extremity: ankle Details: tenderness, swelling, abnormal ROM and ecchymosis Course Course Emergency Course: Right ankle x-ray was negative. Will treat as right ankle sprain Vital Signs Vital signs: Vital Signs Temperature 36.8 C 01/07/25 13:22 Pulse Rate 124 H 01/07/25 13:22 Respiratory Rate 20 01/07/25 13:22 Blood Pressure 151/91 H 01/07/25 13:22 Pulse Oximetry 99 01/07/25 13:22 Oxygen Delivery Room Air 01/07/25 13:22 Temperature 36.8 C 01/07/25 13:22 Pulse Rate 101 H 01/07/25 14:06 Respiratory Rate 16 01/07/25 14:06 Blood Pressure 149/84 H 01/07/25 14:06 Pulse Oximetry 99 01/07/25 14:06 Oxygen Delivery Room Air 01/07/25 13:22 MDM - Extremity Injury (Lower) MDM Narrative Medical decision making narrative: Patient's right ankle x-ray is negative. Will treat with has ankle sprain with walking boot and rice therapy Differential Diagnosis Differential diagnosis: Likely ankle sprain and strain and ankle fracture Imaging Data Radiologist's impression: negative for ankle fracture Discharge Plan Discharge Clinical Impression: Ankle sprain and strain Patient Disposition: Home Condition: Stable Instructions: Antibiotic Form Additional Instructions: Take ibuprofen for pain and swelling Apply ice 4 times a day 20 minutes at a time Wear boot for 1 week Patient Language: Nepali Prescriptions: No Action Adderall XR 30 DAILY Lexapro cyclobenzaprine 10 mg tablet 10 mg PO TID PRN (Reason: muscle spasm) Qty: 20 0RF naproxen 375 mg tablet 375 mg PO BID Qty: 14 0RF tamsulosin [Flomax] 0.4 mg capsule 0.4 mg PO DAILY Qty: 10 0RF ondansetron 4 mg tablet,disintegrating 4 mg PO Q8H PRN (Reason: nausea and vomiting) Qty: 10 0RF hydrocodone-acetaminophen 5-325 mg tablet 1 tablet PO Q6H PRN (Reason: pain) Qty: 14 0RF Follow-up/Referrals: DERREK,LAURA STODDARD [Primary Care Provider] - 1 Week Stand Alone Forms: Work/School Release IP Time of Disposition: 14:29
== END 2025-01-07 15:00 | disposition home or self-care (01) ==
PROVIDERS: Emergency Provider Nurse Practitioner Family; PCP Nurse Practitioner Family
DX: S93.401A Sprain of unspecified ligament of right ankle, initial encounter (principal); S96.911A Strain of unspecified muscle and tendon at ankle and foot level, right foot, initial encounter; X50.9XXA Other and unspecified overexertion or strenuous movements or postures, initial encounter; W10.9XXA Fall (on) (from) unspecified stairs and steps, initial encounter
CPT/HCPCS: 73610; 99283